=== PATIENT | female | born 1960 | race Caucasian/White ===

== ENCOUNTER 2016-12-06 10:36 | Emergency (ER) | payer OTHER, MEDICARE ==
[~2016-12-06] VITALS: Ht 165.1 cm; Wt 152.0 kg
[~2016-12-06 10:36] MED LIST: ABILIFY 10 MG10 MG PO; ALBUTEROL0.09 MG/A1 INH; ALPRAZOLAM2 M2 PO; AMLODIPINE BESY10 M1 PO; ATORVASTATIN CA10 MG PO; CARVEDILOL6.25 M1 PO; CLONIDINE1 EACH TOP; CLOTRIMAZOLE15 GM TOP; DIPROLENE AF 0.15 GM TOP; FLUOXETINE HCL20 M2 PO; GLIPIZIDE5 MG PO; IMODIUM A-D2 M1 PO; KETOCONAZOLE15 GM TOP; KLONOPIN 1MG TAB1 MG PO; LEVEMIR FL100 UNIT/1 SC; LEVEMIR FL300 UNITS/; LEVSIN-SL0.125 MG SL; LISINOPRIL10 M1 PO; LISINOPRIL10 MG PO; LOMOTIL 2.5-0.1 EACH PO; MUPIROCIN22 GM TOP; NOVOLOG 10300 UNITS/ SC; NOVOLOG FL100 UNIT/1 SC; OMEPRAZOLE20 M2 PO; OXYBUTYNIN CHLOR5 M2 PO; ROZEREM8 M1 PO; TOPIRAMATE50 MG PO; TRIAMCINOLONE A15 G1 TOP; UCERIS9 M1 PO; VICODIN 500 MG-1 TAB PO; ZOFRAN ODT4 M1 SL
[2016-12-06 10:43] VITALS: BP 203/101
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
== END 2016-12-06 15:41 ==
LOC: ERH 10:36
DX: F41.9 Anxiety disorder, unspecified (principal)

== ENCOUNTER 2016-12-14 22:55 | Emergency (ER) | payer OTHER, MEDICARE ==
[~2016-12-14] VITALS: Ht 165.1 cm; Wt 156.5 kg
[2016-12-15 00:50] LABS: ABSOLUTE BASOPHIL COUNT 0.1 /CUMM (0.0-0.2); ABSOLUTE EOSINOPHIL COUNT 0.6 /CUMM (0.0-0.7); ABSOLUTE GRANULOCYTE CT 5.2 /CUMM (1.4-6.5); ABSOLUTE LYMPH COUNT 3.6 /CUMM (1.2-3.4); ABSOLUTE MONOCYTE COUNT 0.6 /CUMM (0.10-0.60); BASOPHIL % 0.7 % (0.0-2.0); EOSINOPHIL % 5.6 % (0-5); GRANULOCYTE % 51.4 % (42.2-75.2); HEMATOCRIT 38.7 % (37-47); MEAN CORPUSCULAR HGB 28.3 PG (27.0-31.0); MEAN CORPUSCULAR HGB CONC 33.4 G/DL (33.0-37.0); MEAN CORPUSCULAR VOLUME 84.7 FL (81.0-99.0); MEAN PLATELET VOLUME 8.9 FL (7.4-10.4); PLATELET COUNT 262 /CUMM (130-400); RBC DISTRIBUTION WIDTH 16.6 % (11.5-14.5); RED BLOOD CELL CT 4.56 /CUMM (4.20-5.40)
[2016-12-15 01:19] LABS: WHITE BLOOD CELL COUNT 10.1 /CUMM (4.8-10.8)
--- NOTE | 2016-12-15 02:46 | ED GI/GU/ABDOMINAL COMPLAINT ---
History of Present Illness General Chief Complaint: Low Back Pain/Injury Stated Complaint: BIBA LOW BACK/KIDNEY PAIN, HERE FEW DAYS AGO SAME Source: patient, old records, EMS Exam Limitations: no limitations Vital Signs & Intake/Output Vital Signs & Intake/Output Vital Signs Date Time Temp Pulse Resp B/P Pulse O2 O2 Flow FiO2 Ox Delivery Rate 12/15 518 97.4 68 18 134/75 96 Room Air 12/15 0135 98.0 70 18 148/76 97 Room Air 12/14 2309 Room Air 12/14 2304 97.3 60 18 162/82 96 Room Air ED Intake and Output 12/15 0000 12/14 1200 Intake Total 0 Output Total Balance 0 Intake, Oral 0 Patient 345 lb Weight Allergies Coded Allergies: NSAIDS (Non-Steroidal Anti-Inflamma (CROHNS/DIVERTICULOSIS 12/06/16) aspirin (CROHNS/DIVERTICULOSIS 12/06/16) furosemide (From LASIX) ("ENZYMES WENT ABIMBOLA HIGH" 12/06/16) Reconcile Medications Alprazolam 2 MG TABLET 1 TAB PO TID ANXIETY (Reported) Amlodipine Besylate 10 MG TABLET 1 TAB PO DAILY BP (Reported) Betamethasone Diprop (Diprolene AF 0.05% Cream) 0.05 % CREAM..G. 1 GARY TOP AD SKIN (Reported) apply to affected area(s) Budesonide (Uceris) 9 MG TABDR...ER 1 TAB PO DAILY CROHNS (Reported) Carvedilol 6.25 MG TABLET 1 TAB PO BID BP (Reported) Cephalexin (Keflex) 500 MG CAPSULE 1 CAP PO TID uti Clonidine 0.1 MG/24 HOUR PATCH.TDWK 1 PATCH TOP DAILY BP (Reported) Clotrimazole 1 % CREAM..G. 1 GARY TOP AD SKIN (Reported) apply to affected area(s) Diphenoxylate HCl/Atropine (Lomotil 2.5-0.025 MG Tablet) 2.5 MG-0.025 MG TABLET 2 TAB PO PRN DIARRHEA (Reported) Fluoxetine HCl 20 MG CAPSULE 3 CAP PO QAM MENTAL HEALTH (Reported) Hyoscyamine Sulfate (Levsin-Sl) 0.125 MG TAB.SUBL 1-2 TAB SL Q4P PRN abdominal cramps Insulin Aspart, Recombinant (Novolog Flexpen) 100 UNIT/ML INSULN.PEN DM ( Reported) Insulin Detemir (Levemir Flextouch) 100 UNIT/ML (3 ML) INSULN.PEN 60 UNITS SC BID DM (Reported) Ketoconazole 2 % CREAM..G. 1 GARY TOP AD SKIN (Reported) apply to affected area(s) Lisinopril 10 MG TABLET 1 TAB PO DAILY BP (Reported) Loperamide HCl (Imodium A-D) 2 MG TABLET 0 PO SEE ADMIN CRITERIA PRN diarrhea 1 tab after each loose stool up to 7 per day Mupirocin 2 % OINT...G. 1 GARY TOP AD SKIN (Reported) apply to affected area(s) Omeprazole (Unknown Strength) CAPSULE.DR (Unknown Dose) PO UNKNOWN (Reported) Ondansetron (Zofran Odt) 4 MG TAB.RAPDIS 1 TAB SL TID PRN nausea Oxybutynin Chloride 5 MG TABLET 1 TAB PO TID BLADDER (Reported) Oxycodone HCl/Acetaminophen (Percocet 5-325 MG Tablet) 5 MG-325 MG TABLET 1 TAB PO Q6P PRN severe pain Triamcinolone Acetonide 0.1 % CREAM..G. 1 GARY TOP AD SKIN (Reported) Triage Note: PT BIBA FROM [place] C/O L SIDE BACK/FLANK PAIN 08/19. PT STATES "MAYBE IT'S A KIDNEY STONE." PT DENIES ANY DIFFICULTY URINATING. Triage Nurses Notes Reviewed? yes LMP (ages 10-50): post menopausal ? n Is pt currently ? No Onset: Just prior to arrival Duration: day(s):, constant, continues in ED, getting worse Timing: recent history Quality/Severity: aching Location: left flank Radiation: no radiation Activities at Onset: none Prior Abdominal Problems: similar symptoms Past Sexual History: Unobtainable at this time No Modifying Factors: none Associated Symptoms: abdominal pain HPI: 1 day prior to admission patient complains of sharp left flank pain nonradiating similar to previous pain of kidney stone moderate to severe intensity. She denies fever chills nausea vomiting diarrhea chest pain cough shortness of breath headache dysuria rash bleeding. Past History Travel History Traveled to [place] past 21 day No Medical History Any Pertinent Medical History? 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 FH: colon cancer FATHER, ; Cause: Multiple myeloma. Hx Contributory? No Review of Systems Review of Systems Constitutional: Reports: no symptoms. EENTM: Reports: no symptoms. Respiratory: Reports: no symptoms. Cardiovascular: Reports: no symptoms. GI: Reports: no symptoms. Genitourinary: Reports: see HPI, pain. Musculoskeletal: Reports: no symptoms. Skin: Reports: no symptoms. Neurological/Psychological: Reports: no symptoms. Hematologic/Endocrine: Reports: no symptoms. Immunologic/Allergic: Reports: no symptoms. All Other Systems: Reviewed and Negative Physical Exam Physical Exam General Appearance: well developed/nourished, alert, awake, anxious, moderate distress, obese Head: atraumatic, normal appearance Eyes: Bilateral: normal appearance, PERRL, EOMI, normal inspection. Ears, Nose, Throat, Mouth: hearing grossly normal, moist mucous membrane Neck: normal inspection, supple, full range of motion, normal alignment Respiratory: normal breath sounds, chest non-tender, no respiratory distress, quiet respiration, lungs clear Cardiovascular: regular rate/rhythm, normal peripheral pulses, norml femoral pulses equa Peripheral Pulses: 4+ carotid (R), 4+ carotid (L) Gastrointestinal: normal bowel sounds, soft, non-tender, no organomegaly Back: normal inspection, normal range of motion Extremities: normal range of motion, no ligament instability Neurologic/Psych: no motor/sensory deficits, awake, alert, oriented x 3, normal gait, normal mood/affect Skin: intact, normal color Core Measures ACS in differential dx? No Severe Sepsis Present: No Septic Shock Present: No Progress Differential Diagnosis: diverticulitis, kidney stone, UTI/pyelo Plan of Care: Orders Procedure Date/time Status URINALYSIS 12/14 2334 Complete COMPREHENSIVE METABOLIC PANEL 12/14 2334 Complete CBC WITHOUT DIFFERENTIAL 12/14 2334 Complete Current Medications Sig/Jack Start time Last Medication Dose Stop Time Status Admin Ceftriaxone Sodium 1,000 MG ONCE ONE 12/15 614 UNVr (Rocephin) 12/15 0616 Laboratory Tests 12/15/16 0516: Urinalysis LIGHT H, Urine Color YEL, Urine Clarity CLDY H, Urine pH 6.0, Ur Specific [place] 1.025, Urine Protein TRACE H, Urine Ketones NEG, Urine Nitrite NEG, Urine Bilirubin NEG, Urine Urobilinogen 0.2, Ur Leukocyte Esterase LARGE H , Ur Microscopic SEDIMENT EXAMINED, Urine RBC 3-5, Urine WBC > 75 H, Ur Epithelial Cells FEW, Urine Hemoglobin TRACE-INTACT, Urine Glucose NEG 12/15/16 0031: CBC w Diff NO MAN DIFF REQ, RBC 4.56, MCV 84.7, MCH 28.3, RDW 16.6 H, MPV 8.9, Gran % 51.4, Lymphocytes % 35.9, Monocytes % 6.4, Eosinophils % 5.6 H, Basophils % 0.7, Absolute Granulocytes 5.2, Absolute Lymphocytes 3.6 H, Absolute Monocytes 0.6, Absolute Eosinophils 0.6, Absolute Basophils 0.1, PUBS MCHC 33.4 12/14/16 2352: Anion Gap 7, Estimated GFR > 60, BUN/Creatinine Ratio 23.8, Glucose 164 H, Calcium 9.1, Total Bilirubin 0.7, AST 18, ALT 31, Alkaline Phosphatase 107, Total Protein 6.9, Albumin 3.7, Globulin 3.2, Albumin/Globulin Ratio 1.2 Initial ED EKG: none Comments: Unable to fit into CT scan Departure Departure Time of Disposition: 605 Disposition: ACUTE REHAB FACILITY Condition: Stable Clinical Impression Primary Impression: Renal colic on left side Secondary Impressions: Urinary tract infection Qualifiers: Urinary tract infection type: site unspecified Hematuria presence: without hematuria Qualified Code: N39.0 - Urinary tract infection, site not specified Referrals: CEM ALVES,SCOT FARAH MD,TERRA (PCP/Family) Departure Forms: Customer Survey General Discharge Information Prescriptions: Current Visit Scripts Cephalexin (Keflex) 1 CAP PO TID #21 CAP Oxycodone HCl/Acetaminophen (Percocet 5-325 MG Tablet) 1 TAB PO Q6P PRN severe pain #15 TAB
[2016-12-15] MEDS ORDERED: KEFLEX500 M1 PO (06:09)
[2016-12-15] MEDS ORDERED: PERCOCET 5-3251 EACH PO (06:09)
[2016-12-15 06:27] VITALS: BP 144/83
[2016-12-15] MEDS ORDERED: CEPHALEXIN250 MG/51 (20:07)
[2016-12-15] MEDS ORDERED: TRAMADOL HCL50 M1 (20:08)
[2016-12-15] MEDS ORDERED: VENTOLIN HFA18 GM (20:08)
== END 2016-12-15 07:17 ==
LOC: ERH 22:55
PROVIDERS: Emergency Medicine
DX: N23 Unspecified renal colic (principal); N39.0 Urinary tract infection, site not specified
CPT/HCPCS: 81001; 96374; 96375; J0696

== ENCOUNTER 2016-12-15 19:59 | Emergency (ER) | payer OTHER, MEDICARE ==
[~2016-12-15] VITALS: Ht 165.1 cm; Wt 156.5 kg
[~2016-12-15 19:59] MED LIST changes: +KEFLEX500 M1 PO; +PERCOCET 5-3251 EACH PO
[2016-12-15] MEDS ORDERED: CEPHALEXIN250 MG/51 (20:07)
[2016-12-15] MEDS ORDERED: TRAMADOL HCL50 M1 (20:08)
[2016-12-15] MEDS ORDERED: VENTOLIN HFA18 GM (20:08)
--- NOTE | 2016-12-15 20:08 | ED PSYCHIATRIC COMPLAINT ---
See Addendum History of Present Illness General Chief Complaint: Psychiatric Related Complaint Stated Complaint: BIBA +SI Source: patient, old records, EMS, [facility] Exam Limitations: no limitations Vital Signs & Intake/Output Vital Signs & Intake/Output Vital Signs Date Time Temp Pulse Resp B/P Pulse O2 O2 Flow FiO2 Ox Delivery Rate 12/16 0737 97.0 63 18 163/78 95 Room Air 12/16 0528 96.8 63 18 162/84 97 Room Air 12/16 0257 96.0 59 20 179/86 97 Room Air 12/16 0035 97.4 56 18 158/72 98 Room Air 12/158 97.4 48 18 167/70 97 Room Air 12/15 2058 Room Air 12/15 2010 97.2 55 20 153/79 98 Room Air ED Intake and Output 12/16 0000 12/15 1200 Intake Total 0 Output Total Balance 0 Intake, Oral 0 Patient 345 lb Weight Allergies Coded Allergies: NSAIDS (Non-Steroidal Anti-Inflamma (CROHNS/DIVERTICULOSIS 12/06/16) aspirin (CROHNS/DIVERTICULOSIS 12/06/16) furosemide (From LASIX) ("ENZYMES WENT ABIMBOLA HIGH" 12/06/16) Reconcile Medications Albuterol Sulfate (Ventolin Hfa) (Unknown Strength) HFA.AER.AD (Unknown Dose) UNKNOWN (Reported) Alprazolam 2 MG TABLET 1 TAB PO TID ANXIETY (Reported) Amlodipine Besylate 10 MG TABLET 1 TAB PO DAILY BP (Reported) Betamethasone Diprop (Diprolene AF 0.05% Cream) 0.05 % CREAM..G. 1 GARY TOP AD SKIN (Reported) apply to affected area(s) Budesonide (Uceris) 9 MG TABDR...ER 1 TAB PO DAILY CROHNS (Reported) Carvedilol 6.25 MG TABLET 1 TAB PO BID BP (Reported) Cephalexin 250 MG/5 ML SUSP.RECON (Unknown Dose) UNKNOWN (Reported) Cephalexin (Keflex) 500 MG CAPSULE 1 CAP PO TID uti Clonidine 0.1 MG/24 HOUR PATCH.TDWK 1 PATCH TOP DAILY BP (Reported) Clotrimazole 1 % CREAM..G. 1 GARY TOP AD SKIN (Reported) apply to affected area(s) Diphenoxylate HCl/Atropine (Lomotil 2.5-0.025 MG Tablet) 2.5 MG-0.025 MG TABLET 2 TAB PO PRN DIARRHEA (Reported) Fluoxetine HCl 20 MG CAPSULE 3 CAP PO QAM MENTAL HEALTH (Reported) Hyoscyamine Sulfate (Levsin-Sl) 0.125 MG TAB.SUBL 1-2 TAB SL Q4P PRN abdominal cramps Insulin Aspart, Recombinant (Novolog Flexpen) 100 UNIT/ML INSULN.PEN DM ( Reported) Insulin Detemir (Levemir Flextouch) 100 UNIT/ML (3 ML) INSULN.PEN 60 UNITS SC BID DM (Reported) Ketoconazole 2 % CREAM..G. 1 GARY TOP AD SKIN (Reported) apply to affected area(s) Lisinopril 10 MG TABLET 1 TAB PO DAILY BP (Reported) Mupirocin 2 % OINT...G. 1 GARY TOP AD SKIN (Reported) apply to affected area(s) Omeprazole (Unknown Strength) CAPSULE.DR (Unknown Dose) PO UNKNOWN (Reported) Oxybutynin Chloride 5 MG TABLET 1 TAB PO TID BLADDER (Reported) Tramadol HCl (Unknown Strength) TABLET (Unknown Dose) UNKNOWN (Reported) Triamcinolone Acetonide 0.1 % CREAM..G. 1 GARY TOP AD SKIN (Reported) Triage Nurses Notes Reviewed? yes Onset: Gradual Duration: week(s):, waxing and waning Timing: recent history Severity: mild, moderate Associated Symptoms: anxiety, suicidal ideation HPI: 56-year-old woman with history of chronic pain and depression from a [place] [facility], presents with suicidal statements. The medics state that she became agitated and said that she wanted to kill herself with a knife. She also made threatening statements to the staff. The medics were called the police also arrived. The police papered her. She states , "of course I said those things, but it's because they didn't give me my pain medication." She denies suicidality and homicidality. She notes that she has chronic left-sided back and side pain which she has had for several weeks. She notes also that she was seen recently in the emergency department and started on Keflex for urinary tract infection, she states that she missed her recent dose. (SHANE ALVES,KELVIN Klein) Past History Travel History Traveled to [place] past 21 day No Medical History Any Pertinent Medical History? 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 FH: colon cancer FATHER, ; Cause: Multiple myeloma. Hx Contributory? No (SHANE ALVES,KELVIN Klein) Review of Systems Review of Systems Constitutional: Reports: no symptoms. EENTM: Reports: no symptoms. Respiratory: Reports: no symptoms. Cardiovascular: Reports: no symptoms. GI: Reports: no symptoms. Genitourinary: Reports: no symptoms. Musculoskeletal: Reports: no symptoms. Skin: Reports: no symptoms. Neurological/Psychological: Reports: no symptoms. Hematologic/Endocrine: Reports: no symptoms. Immunologic/Allergic: Reports: no symptoms. All Other Systems: Reviewed and Negative (SHANE ALVES,KELVIN Klein) Physical Exam Physical Exam General Appearance: well developed/nourished, mild distress Head: atraumatic Eyes: Bilateral: normal appearance. Ears, Nose, Throat: normal pharynx, normal ENT inspection, hearing grossly normal Neck: normal inspection, supple Respiratory: normal breath sounds Cardiovascular: regular rate/rhythm Gastrointestinal: soft, non-tender Extremities: normal range of motion Neurological/Psychiatric: no motor/sensory deficits, awake, agitated, normal mood/affect Appearance/Memory/Insight: disheveled Behavoir/Eye Contact/Speech: cooperative Thoughts/Hallucinations: anxiety Skin: intact, normal color, warm/dry Comments: Back exam notable for left sided thoracic musculoskeletal tenderness to palpation SAD PERSONS SAD PERSONS Response Value Age <19 or >45 years? yes 1 Depression/Hopelessness? yes 2 Social Support? has support 0 Total 3 SAD PERSONS Done? yes (SHANE ALVES,KELVIN Klein) Progress Differential Diagnosis: depression, anxiety, chronic pain versus other. Plan of Care: Orders Procedure Date/time Status Regular Diet 12/16 B Active CASE MANAGEMENT CONSULT 12/16 0501 Active URINALYSIS 12/15 2016 Complete Continuous Observation Monitor 02/05 2016 Active ED CRISIS PSYCH CONSULT 12/15 2015 Active URINE DRUG SCREEN FOR ER ONLY 12/15 2005 Complete ETHANOL 12/15 2005 Complete COMPREHENSIVE METABOLIC PANEL 12/15 2005 Complete CBC WITHOUT DIFFERENTIAL 12/15 2005 Complete Laboratory Tests 12/15/162047: Urine Opiates Screen 885.00, Methadone Screen < 40, Barbiturate Screen < 60, Ur Phencyclidine Scrn < 6.00, Amphetamines Screen < 100, U Benzodiazepines Scrn > 800 H, Urine Cocaine Screen < 50, Urine Cannabis Screen < 5.00, Urine Color YEL , Urine Clarity HAZY H, Urine pH 6.0, Ur Specific [place] 1.020, Urine Protein NEG, Urine Ketones NEG, Urine Nitrite NEG, Urine Bilirubin NEG, Urine Urobilinogen 0.2, Ur Leukocyte Esterase LARGE H, Ur Microscopic SEDIMENT EXAMINED, Urine RBC 1-3, Urine WBC 15-25 H, Ur Epithelial Cells FEW, Urine Hemoglobin TRACE-INTACT, Urine Glucose NEG 12/15/162023: Anion Gap 7, Estimated GFR 51 L, BUN/Creatinine Ratio 17.3, Glucose 149 H, Calcium 9.1, Total Bilirubin 0.5, AST 19, ALT 38, Alkaline Phosphatase 107, Total Protein 6.5, Albumin 3.5, Globulin 3.0, Albumin/Globulin Ratio 1.2, CBC w Diff NO MAN DIFF REQ, RBC 4.69, MCV 83.9, MCH 28.0, RDW 16.7 H, MPV 8.7, Gran % 65.3, Lymphocytes % 23.2, Monocytes % 5.4, Eosinophils % 5.5 H, Basophils % 0.6 , Absolute Granulocytes 6.1, Absolute Lymphocytes 2.2, Absolute Monocytes 0.5, Absolute Eosinophils 0.5, Absolute Basophils 0.1, PUBS MCHC 33.4, Serum Alcohol < 10.0 Hand-Off Endorsed To: BARBI ORO DO Endorsed Time: 0700 Pending: consult (SHANE ALVES,KELVIN Klein) Departure Departure Disposition: STILL A PATIENT Condition: Stable Clinical Impression Primary Impression: Depression Secondary Impressions: Chronic pain, UTI (urinary tract infection) Referrals: TERRA FARAH MD (PCP/Family) Departure Forms: Customer Survey General Discharge Information (SHANE ALVES,KELVIN Klein) Departure Comments 12/16/16 8:30 AM The patient was signed out to me by Dr. Olmstead. She is a 56-year-old female with morbid obesity, chronic back pain, Crohn's disease, and diabetes. She is currently a resident of [place]. She reports that she feels she was mistreated, that they weren't adequately treating her pain, and she expressed suicidal ideation and is refusing to go back. No complaints in the emergency department at this time. Case management and crisis have been requested to evaluate the patient's situation. (BARBI ORO DO)
[2016-12-15 20:31] LABS: ABSOLUTE BASOPHIL COUNT 0.1 /CUMM (0.0-0.2); ABSOLUTE EOSINOPHIL COUNT 0.5 /CUMM (0.0-0.7); ABSOLUTE GRANULOCYTE CT 6.1 /CUMM (1.4-6.5); ABSOLUTE LYMPH COUNT 2.2 /CUMM (1.2-3.4); ABSOLUTE MONOCYTE COUNT 0.5 /CUMM (0.10-0.60); BASOPHIL % 0.6 % (0.0-2.0); EOSINOPHIL % 5.5 % (0-5); GRANULOCYTE % 65.3 % (42.2-75.2); HEMATOCRIT 39.3 % (37-47); MEAN CORPUSCULAR HGB CONC 33.4 G/DL (33.0-37.0); MEAN CORPUSCULAR VOLUME 83.9 FL (81.0-99.0); MEAN PLATELET VOLUME 8.7 FL (7.4-10.4); PLATELET COUNT 254 /CUMM (130-400); RBC DISTRIBUTION WIDTH 16.7 % (11.5-14.5); RED BLOOD CELL CT 4.69 /CUMM (4.20-5.40); WHITE BLOOD CELL COUNT 9.3 /CUMM (4.8-10.8)
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
[2016-12-16 15:00] VITALS: BP 152/67
== END 2016-12-16 15:56 | disposition left against medical advice (07) ==
LOC: ERH 19:59
PROVIDERS: Pediatrics
DX: F32.9 Major depressive disorder, single episode, unspecified (principal); G89.29 Other chronic pain; N39.0 Urinary tract infection, site not specified; I10 Essential (primary) hypertension
CPT/HCPCS: 80307; 81001; 96374; 96375; 97110-GP; 97162-GP; 97530-GP; G0463; G0480; G8978-GP; G8979-GP; J0696

== ENCOUNTER 2017-04-12 02:25 | Emergency (ER) | payer OTHER, MEDICARE ==
[~2017-04-12] VITALS: Ht 162.6 cm; Wt 181.4 kg
[~2017-04-12 02:25] MED LIST changes: +CEPHALEXIN250 MG/51; +TRAMADOL HCL50 M1; +VENTOLIN HFA18 GM
[2017-04-12 02:30] VITALS: BP 194/104
--- NOTE | 2017-04-12 02:35 | ED GENERAL ADULT ---
History of Present Illness General Chief Complaint: General Adult Stated Complaint: "PER PT NEED TO BE CLEANED" Source: patient, EMS Exam Limitations: no limitations Vital Signs & Intake/Output Vital Signs & Intake/Output Vital Signs Date Time Temp Pulse Resp B/P B/P Pulse O2 O2 Flow FiO2 Mean Ox Delivery Rate 04/12 0230 95.7 72 18 194/104 97 Room Air Allergies Coded Allergies: NSAIDS (Non-Steroidal Anti-Inflamma (CROHNS/DIVERTICULOSIS 12/06/16) aspirin (CROHNS/DIVERTICULOSIS 12/06/16) furosemide (From LASIX) ("ENZYMES WENT ABIMBOLA HIGH" 12/06/16) Reconcile Medications Albuterol Sulfate (Ventolin Hfa) (Unknown Strength) HFA.AER.AD (Unknown Dose) UNKNOWN (Reported) Alprazolam 2 MG TABLET 1 TAB PO TID ANXIETY (Reported) Amlodipine Besylate 10 MG TABLET 1 TAB PO DAILY BP (Reported) Betamethasone Diprop (Diprolene AF 0.05% Cream) 0.05 % CREAM..G. 1 GARY TOP AD SKIN (Reported) apply to affected area(s) Budesonide (Uceris) 9 MG TABDR...ER 1 TAB PO DAILY CROHNS (Reported) Carvedilol 6.25 MG TABLET 1 TAB PO BID BP (Reported) Cephalexin 250 MG/5 ML SUSP.RECON (Unknown Dose) UNKNOWN (Reported) Cephalexin (Keflex) 500 MG CAPSULE 1 CAP PO TID uti Clonidine 0.1 MG/24 HOUR PATCH.TDWK 1 PATCH TOP DAILY BP (Reported) Clotrimazole 1 % CREAM..G. 1 GARY TOP AD SKIN (Reported) apply to affected area(s) Diphenoxylate HCl/Atropine (Lomotil 2.5-0.025 MG Tablet) 2.5 MG-0.025 MG TABLET 2 TAB PO PRN DIARRHEA (Reported) Fluoxetine HCl 20 MG CAPSULE 3 CAP PO QAM MENTAL HEALTH (Reported) Hyoscyamine Sulfate (Levsin-Sl) 0.125 MG TAB.SUBL 1-2 TAB SL Q4P PRN abdominal cramps Insulin Aspart, Recombinant (Novolog Flexpen) 100 UNIT/ML INSULN.PEN DM ( Reported) Insulin Detemir (Levemir Flextouch) 100 UNIT/ML (3 ML) INSULN.PEN 60 UNITS SC BID DM (Reported) Ketoconazole 2 % CREAM..G. 1 GARY TOP AD SKIN (Reported) apply to affected area(s) Lisinopril 10 MG TABLET 1 TAB PO DAILY BP (Reported) Mupirocin 2 % OINT...G. 1 GARY TOP AD SKIN (Reported) apply to affected area(s) Omeprazole (Unknown Strength) CAPSULE.DR (Unknown Dose) PO UNKNOWN (Reported) Oxybutynin Chloride 5 MG TABLET 1 TAB PO TID BLADDER (Reported) Tramadol HCl (Unknown Strength) TABLET (Unknown Dose) UNKNOWN (Reported) Triamcinolone Acetonide 0.1 % CREAM..G. 1 GARY TOP AD SKIN (Reported) Triage Nurses Notes Reviewed? yes Onset: Gradual Duration: hour(s): Timing: single episode today Injury Environment: home Severity: mild Modifying Factors: Improves With: rest. Associated Symptoms: "I defecated and I can't clean myself up." HPI: 57 yo woman bed bound, with morbid obesity, crohn's disease, presents after defecation. She states that, "I defecated and my aides weren't around to help me clean up. I called 911 so that they could help me." She states, "All I need is for someone to clean me up and then I can go back home." She declines blood work and imaging. She states that she is well, at her baseline, and would like to go home after being cleaned. The medics note that they are often called to the home. Past History Travel History Traveled to [place] past 21 day No Medical History Any Pertinent Medical History? 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 FH: colon cancer FATHER, ; Cause: Multiple myeloma. Hx Contributory? No Review of Systems Review of Systems Constitutional: Reports: no symptoms. EENTM: Reports: no symptoms. Respiratory: Reports: no symptoms. Cardiovascular: Reports: no symptoms. GI: Reports: no symptoms. Genitourinary: Reports: no symptoms. Musculoskeletal: Reports: no symptoms. Skin: Reports: no symptoms. Neurological/Psychological: Reports: no symptoms. Hematologic/Endocrine: Reports: no symptoms. Immunologic/Allergic: Reports: no symptoms. All Other Systems: Reviewed and Negative Physical Exam Physical Exam General Appearance: well developed/nourished, no apparent distress Head: atraumatic, normal appearance Eyes: Bilateral: normal appearance. Ears, Nose, Throat: normal pharynx Neck: normal inspection, supple, full range of motion Respiratory: normal breath sounds, chest non-tender, no respiratory distress, quiet respiration, lungs clear Cardiovascular: regular rate/rhythm Gastrointestinal: soft, morbidly obese Back: normal inspection Extremities: normal inspection Neurologic/Psych: no motor/sensory deficits, awake, alert, oriented x 3 Skin: intact, normal color, warm/dry Core Measures ACS in differential dx? No CVA/TIA Diagnosis: No Severe Sepsis Present: No Septic Shock Present: No Progress Differential Diagnoses I considered the following diagnoses in my evaluation of the patient: defecation vs morbid obesity vs other. Plan of Care: pt cleaned up by nursing staff. Pt insists on going home. Initial ED EKG: none Departure Departure Disposition: HOME OR SELF CARE Condition: Stable Clinical Impression Primary Impression: Frequent defecation Referrals: TERRA FARAH MD (PCP/Family) Departure Forms: Customer Survey General Discharge Information Comments Discussed at length with patient. She does not wish to be evaluated by case management. She states that she has aides that help her. She insists on going home. Pt cleaned from her bowel movement. Pt transferred back to home via ambulance. Critical Care Note Critical Care Note Critical Care Time: non-applicable
== END 2017-04-12 03:15 ==
LOC: ERH 02:25
DX: Z00.8 Encounter for other general examination (principal)
CPT/HCPCS: 99282

== ENCOUNTER 2018-05-17 18:59 | Inpatient (IN) | payer OTHER, MEDICARE ==
[~2018-05-17] VITALS: Ht 162.6 cm; Wt 132.9 kg
[~2018-05-17 18:59] MED LIST changes: +CIPRO500 M1 PO; +COZAAR50 M1 PO; +DESITIN57 GM TOP; +FAMOTIDINE20 M1 PO; +GLIPIZIDE5 M2 PO; +HYDRALAZINE HC100 M1 PO; +HYDROCODON-ACE1 EAC4 PO; +LANTUS SOL100 UNIT/1 SC; -LISINOPRIL10 M1 PO; +LISINOPRIL40 M1 PO; +NYAMYC15 GM TOP; +OXYCODONE HCL5 M1 PO; +TOPAMAX50 M1 PO; +VENLAFAXINE HC100 M1 PO; +VITAMIN D250000 UNIT PO
--- NOTE | 2018-05-17 19:26 | ED GI/GU/ABDOMINAL COMPLAINT ---
History of Present Illness General Chief Complaint: Nausea, Vomiting, Diarrhea Stated Complaint: BIBA +N X5 DAYS Source: patient Exam Limitations: no limitations Vital Signs & Intake/Output Vital Signs & Intake/Output Vital Signs Date Time Temp Pulse Resp B/P B/P Pulse O2 O2 Flow FiO2 Mean Ox Delivery Rate 05/18 0248 99.3 96 20 130/67 95 Room Air 05/18 0213 99.8 80 18 133/80 98 Room Air 05/18 0006 100.0 98 18 129/71 97 Room Air 05/17 2212 99.8 98 18 138/75 97 Room Air 05/17 1910 99.9 101 20 136/60 97 Room Air ED Intake and Output 05/18 0000 05/17 1200 Intake Total 1000 Output Total 100 Balance 900 Intake, IV 1000 Output, Urine 100 Allergies Coded Allergies: NSAIDS (Non-Steroidal Anti-Inflamma (CROHNS/DIVERTICULOSIS 04/01/18) aspirin (CROHNS/DIVERTICULOSIS 04/01/18) furosemide (From LASIX) ("ENZYMES WENT ABIMBOLA HIGH" 04/01/18) Reconcile Medications Alprazolam 2 MG TABLET 1 TAB PO TID ANXIETY (Reported) Amlodipine Besylate (Unknown Strength) TABLET (Unknown Dose) PO DAILY BP ( Reported) Carvedilol 6.25 MG TABLET 1 TAB PO BID BP (Reported) Ciprofloxacin HCl (Cipro) 500 MG TABLET 1 TAB PO BID uti Clotrimazole 1 % CREAM..G. 1 GARY TOP AD SKIN (Reported) apply to affected area(s) Fluoxetine HCl 20 MG CAPSULE 3 CAP PO QAM MENTAL HEALTH (Reported) Glipizide 5 MG TABLET 1 TAB PO BID DIABETES (Reported) Hydralazine HCl 100 MG TABLET 1 TAB PO BID HEART (Reported) Hydrocodone/Acetaminophen (Hydrocodon-Acetaminophn 10-300) 10 MG-300 MG TABLET 1 TAB PO Q6 PAIN (Reported) Insulin Aspart, Recombinant (Novolog Flexpen) 100 UNIT/ML INSULN.PEN DM ( Reported) Insulin Glargine,Hum.rec.anlog (Lantus Solostar) (Unknown Strength) INSULN.PEN (Unknown Dose) SC QAM DM (Reported) Ketoconazole 2 % CREAM..G. 1 GARY TOP AD SKIN (Reported) apply to affected area(s) Lisinopril (Unknown Strength) TABLET (Unknown Dose) PO DAILY BP (Reported) Losartan Potassium (Cozaar) 50 MG TABLET 1 TAB PO DAILY HYPERTENSION Nystatin (Nyamyc) 100,000 UNIT/GRAM POWDER 1 GARY TOP BID RASH (Reported) Omeprazole (Unknown Strength) CAPSULE.DR (Unknown Dose) PO DAILY SUPPLEMENT ( Reported) Ondansetron (Zofran Odt) 4 MG TAB.RAPDIS 1 TAB SL TID PRN nausea Oxybutynin Chloride (Unknown Strength) TABLET (Unknown Dose) PO BID BLADDER ( Reported) Oxycodone HCl 5 MG TABLET 1 TAB PO 4XDP PRN pain Topiramate (Topamax) (Unknown Strength) TABLET (Unknown Dose) PO BID UNKNOWN (Reported) Venlafaxine HCl 100 MG TABLET 1 TAB PO BID MENTAL HEALTH (Reported) Zinc Oxide (Desitin) 13 % CREAM..G. 1 GARY TOP TID SKIN (Reported) Triage Note: PT BIBA FROM HOME FOR N/V X3DAYS. PT STATES SHE TOOK HER PRESCRIBED ZOFRAN W/ (+) RELIEF. PT STATES SHE HAS HAD KIDNEY STONES FOR THE PAST FEW MONTHS Triage Nurses Notes Reviewed? yes ? n Is pt currently ? No Onset: Gradual Duration: day(s):, waxing and waning Timing: recent history Quality/Severity: cramping Location: right lower quadrant Radiation: RUQ Activities at Onset: none Modifying Factors: Worsens With: urinating. Associated Symptoms: abdominal pain, nausea/vomiting HPI: 58 YO WOMAN h/o crohn's and kidney stones, presents with 3 days of right lower quadrant , and dysuria, vomiting, nausea, without diarrhea. No fever, chills, chest pain, dyspnea. Past History Travel History Traveled to [place] past 21 day No Medical History Any Pertinent Medical History? 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 FH: colon cancer FATHER, ; Cause: Multiple myeloma. Hx Contributory? No Review of Systems Review of Systems Constitutional: Reports: no symptoms. EENTM: Reports: no symptoms. Respiratory: Reports: no symptoms. Cardiovascular: Reports: no symptoms. GI: Reports: no symptoms. Genitourinary: Reports: no symptoms. Musculoskeletal: Reports: no symptoms. Skin: Reports: no symptoms. Neurological/Psychological: Reports: no symptoms. Hematologic/Endocrine: Reports: no symptoms. Immunologic/Allergic: Reports: no symptoms. All Other Systems: Reviewed and Negative Physical Exam Physical Exam General Appearance: well developed/nourished Gastrointestinal: normal bowel sounds, soft, rlq tenderness to palpation Comments: Review of Systems - except as otherwise noted in HPI Physical Exam Physical Exam General Appearance: well developed/nourished, no apparent distress Head: atraumatic, normal appearance Eyes: Bilateral: normal appearance. Ears, Nose, Throat: normal pharynx, normal ENT inspection except for dry mucosa Neck: normal inspection, supple, full range of motion Respiratory: normal breath sounds, chest non-tender, no respiratory distress, quiet respiration, lungs clear Cardiovascular: regular rate/rhythm Gastrointestinal: normal bowel sounds, soft, non-tender, no organomegaly... obesity Back: normal inspection, normal range of motion, right sided cva tenderness Extremities: normal inspection, normal capillary refill, normal range of motion, no edema Neurologic/Psych: no motor/sensory deficits, awake, alert, oriented x 3 Skin: intact, normal color, warm/dry Core Measures ACS in differential dx? No Sepsis Present: Yes Sepsis Focused Exam Completed? Yes ED Sepsis Exam Date of Focused Sepsis Exam: 05/17/18 Time of Focused Sepsis Exam: 0 Sepsis Cardiac Exam: Regular Rate/Rhythm Sepsis Resp Exam: CTA Sepsis Cap Refill Exam: <2 Sec Sepsis Peripheral Pulse Exam: Normal Sepsis Peripheral Pulse Location: Dorsalis Pedis Sepsis Skin Color Exam: Normal for Ethnicity Skin Temp/Moisture Exam: Warm/Dry Progress Differential Diagnosis: appendicitis, cholecystitis, diverticulitis, gastritis, hepatitis Plan of Care: Orders Procedure Date/time Status Consistent Carbohydrate 3 05/18 B Active CBC WITHOUT DIFFERENTIAL 05/18 600 Active BASIC ELECTROLYTES PLUS BUN&CR 05/18 600 Active Turn and Reposition 05/18 310 Active Skin Integrity Protocol 07/09 0310 Active Pathway - chart 05/18 0252 Active House Staff 05/18 0252 Active Code Status 05/18 0252 Active FingerStick- Glucose 05/18 0247 Active Weight 05/18 0212 Active Vital Signs 05/18 0212 Active Teach/Educate 05/18 212 Active Pain Treatment and Response 05/18 212 Active Nutritional Intake, Monitor 05/18 212 Active Isolation 05/18 212 Active Intake & Output 05/18 021 Active Patient Care Conference 05/18 212 Active Activity/Ambulation 05/18 212 Active VTE Mechanical Prophylaxis 05/18 UNK Active Vital Signs 05/18 UNK Complete Intake & Output 05/18 UNK Complete Activity/Ambulation 05/18 UNK Complete Patient Data 05/17 2358 Active Add-on Test (ER Only) 05/17 235 Active Saline Lock 05/17 235 Active Misc Message 05/17 235 Active ED Holding Orders 05/17 2351 Active Admit to inpatient 05/17 2351 Active Vital Signs 05/17 2351 Active Code Status 05/17 2351 Complete BLOOD CULTURE 05/17 224 Active Add-on Test (ER Only) 05/17 223 Active BLOOD CULTURE 05/17 223 Active CULTURE,URINE 05/17 220 Active Intake & Output 05/17 2133 Active LACTIC ACID 05/17 2046 Complete URINALYSIS 05/17 2003 Complete TROPONIN LEVEL 05/17 1925 Complete LIPASE 05/17 1925 Complete HEPATIC FUNCTION PANEL 05/17 1925 Complete CBC WITHOUT DIFFERENTIAL 05/17 1925 Complete BASIC METABOLIC PANEL 05/17 1925 Complete AMYLASE 05/17 1925 Complete EKG 05/17 1925 Active Current Medications Sig/Jack Start time Last Medication Dose Stop Time Status Admin Ceftriaxone Sodium 2,000 MG DAILY 05/18 900 AC (Rocephin) Heparin Sodium 5,000 UNIT Q8 05/18 06 AC (Porcine) Morphine Sulfate 2 MG Q4P PRN 05/18 0345 AC (MORPHINE SULFATE) Ondansetron HCl 4 MG Q6P PRN 05/18 0345 AC (Zofran) Sodium Chloride 1,000 ML Q13H 05/18 0300 AC 05/18 (Normal Saline 0.9%) 0327 Acetaminophen 650 MG Q6P PRN 05/18 0215 AC (Tylenol) Laboratory Tests 05/17/18 2205: Urinalysis MANY H, Urine Color YEL, Urine Clarity TURBD H, Urine pH 6.0, Ur Specific Baxter 1.025, Urine Protein 100 H, Urine Ketones NEG, Urine Nitrite NEG, Urine Bilirubin NEG@ICTO, Urine Urobilinogen 1.0, Ur Leukocyte Esterase LARGE H, Ur Microscopic SEDIMENT EXAMINED, Urine RBC 1-3, Urine WBC PACKD H, Ur Epithelial Cells MOD H, Urine Bacteria PACKD H, Hyaline Casts RARE H, Granular Casts 1-3 H, Urine Mucus MOD H, Urine Hemoglobin TRACE-INTACT, Urine Glucose 100 H 05/17/182045: Lactic Acid 1.2, CBC w Diff MAN DIFF ORDERED, RBC 4.63, MCV 83.8, MCH 28.3, MCHC 33.8, RDW 16.9 H, MPV 8.9, Gran % 88.5 H, Lymphocytes % 4.4 L, Monocytes % 7.0, Eosinophils % 0, Basophils % 0.1, Absolute Granulocytes 16.3 H, Segmented Neutrophils 90 H, Band Neutrophils 2, Absolute Lymphocytes 0.8 L, Lymphocytes 5 L, Monocytes 3, Absolute Monocytes 1.3 H, Absolute Eosinophils 0, Absolute Basophils 0, Platelet Estimate ADEQUATE, Normocytic RBCs VERIFIED, Normochromic RBCs VERIFIED 05/17/18 2006: Anion Gap 17 H, Estimated GFR 46 L, BUN/Creatinine Ratio 25.8 H, Glucose 285 H, Calcium 9.1, Total Bilirubin 1.0, Direct Bilirubin 0.4, AST 25, ALT 23, Alkaline Phosphatase 107, Troponin I 0.02, Total Protein 6.6, Albumin 2.9 L, Amylase < 30 L, Lipase < 10 L Microbiology 05/170 BLOOD: Blood Culture - ORD 05/17 2237 BLOOD: Blood Culture - ORD 05/17 2205 URINE ROUT: Urine Culture - RECD Diagnostic Imaging: Viewed by Me: CT Scan. Discussed w/RAD: CT Scan. Radiology Impression: PATIENT: ANALISA BOWIE PRESENT AGE: 58 PATIENT ACCOUNT NO: [id number] : 58 LOCATION: [facility] ORDERING PHYSICIAN: Azar Olmstead MD SERVICE DATE: 05/17/18 EXAM TYPE: CAT - CT ABD & PELVIS W/O IV CONTRAS EXAMINATION: CT ABDOMEN AND PELVIS WITHOUT CONTRAST CLINICAL INFORMATION: Right lower quadrant pain COMPARISON: 04/01/2018 TECHNIQUE: Multidetector volumetric imaging was performed from the superior aspect of the liver through the pubic symphysis. Sagittal and coronal reformatted images were obtained on the technologist's workstation. DLP: 1510 mGy-cm FINDINGS: LUNG BASES: 0.3 cm right lower lobe nodule, series 2 image 3. This is unchanged. Coronary artery calcifications noted. LIVER, GALLBLADDER, AND BILIARY TREE: The liver is enlarged measuring 24 cm in CC dimension. The liver is normal in shape and attenuation. No focal hepatic lesion or biliary ductal dilatation is present. Cholecystectomy. PANCREAS: Unremarkable. SPLEEN: Unremarkable. ADRENAL GLANDS: Unremarkable. KIDNEYS AND URETERS: The kidneys are normal in size, shape, and attenuation. There is no current hydronephrosis. There is prominent asymmetric left perinephric stranding. This is a change from the prior study performed 04/01/2018. There is a left midpole 0.6 cm calculus which is 16 cm from the posterior axillary line. This is unchanged from prior. There are no additional calculi seen. The ureters are decompressed. BLADDER: Unremarkable. GASTROINTESTINAL TRACT: The stomach is decompressed with no gross abnormality. The small bowel is normal in caliber. There is no obstruction. There is colonic diverticulosis noted without evidence of diverticulitis. Normal appendix. No free air or free fluid. ABDOMINAL WALL: No significant hernia is appreciated. LYMPH NODES: Normal. VASCULAR: Unremarkable. PELVIC VISCERA: The uterus is not seen. No adnexal mass. OSSEOUS STRUCTURES: No acute or suspicious osseous abnormality. Multilevel degenerative changes noted in the spine. Mild degenerative changes of the hips. IMPRESSION: 1. Asymmetric left perinephric stranding which is a new finding from the prior study. No hydronephrosis. Unchanged appearance of a nonobstructing left midpole renal calculus. This appearance is nonspecific, and while a recently passed stone could have this appearance, the lack of change from prior makes an additional stone unlikely. Alternatively, an infectious process could be considered. 2. Hepatomegaly. 3. Unchanged 0.3 cm right lower lobe pulmonary nodule. DICTATED BY: Carmen ALVES, Reggie DATE/TIME DICTATED:05/17/182308 [employer]IN DEALER:LUNA DATE/TIME TRANSCRIBED:05/17/182308 CONFIDENTIAL, DO NOT COPY WITHOUT APPROPRIATE AUTHORIZATION. <Electronically signed in Other Vendor System> SIGNED BY: Carmen ALVES,Reggie 05/17/18 1154 Initial ED EKG: sinus tach Departure Departure Disposition: HOME OR SELF CARE Condition: Stable Clinical Impression Primary Impression: Sepsis Secondary Impressions: Dehydration, Pyelonephritis, Renal failure Referrals: Cecelia Rod APRN (PCP/Family) Departure Forms: Customer Survey General Discharge Information Admission Note Spoke With: Que Cárdenas MD Documentation of Exam: Documentation of any treatments & extenuating circumstances including Concerns Regarding Discharge (functional status, medication knowledge or non-compliance, living conditions, etc.) that warrant an admission rather than observation: pt with pyelonephritis, meets criteria for sepsis, merits iv abx, iv fluids.
[2018-05-17 20:54] LABS: ABSOLUTE BASOPHIL COUNT 0 /CUMM (0.0-0.2); ABSOLUTE EOSINOPHIL COUNT 0 /CUMM (0.0-0.7); ABSOLUTE GRANULOCYTE CT 16.3 /CUMM (1.4-6.5); ABSOLUTE LYMPH COUNT 0.8 /CUMM (1.2-3.4); ABSOLUTE MONOCYTE COUNT 1.3 /CUMM (0.10-0.60); BASOPHIL % 0.1 % (0.0-2.0); EOSINOPHIL % 0 % (0-5); GRANULOCYTE % 88.5 % (42.2-75.2); HEMATOCRIT 38.8 % (37-47); MEAN CORPUSCULAR HGB 28.3 PG (27.0-31.0); MEAN CORPUSCULAR HGB CONC 33.8 G/DL (33.0-37.0); MEAN CORPUSCULAR VOLUME 83.8 FL (81.0-99.0); MEAN PLATELET VOLUME 8.9 FL (7.4-10.4); PLATELET COUNT 257 /CUMM (130-400); RBC DISTRIBUTION WIDTH 16.9 % (11.5-14.5); RED BLOOD CELL CT 4.63 /CUMM (4.20-5.40); WHITE BLOOD CELL COUNT 18.4 /CUMM (4.8-10.8)
--- NOTE | 2018-05-17 23:17 | CT SCAN REPORT ---
EXAMINATION: CT ABDOMEN AND PELVIS WITHOUT CONTRAST CLINICAL INFORMATION: Right lower quadrant pain COMPARISON: 04/01/2018 TECHNIQUE: Multidetector volumetric imaging was performed from the superior aspect of the liver through the pubic symphysis. Sagittal and coronal reformatted images were obtained on the technologist's workstation. DLP: 1510 mGy-cm FINDINGS: LUNG BASES: 0.3 cm right lower lobe nodule, series 2 image 3. This is unchanged. Coronary artery calcifications noted. LIVER, GALLBLADDER, AND BILIARY TREE: The liver is enlarged measuring 24 cm in CC dimension. The liver is normal in shape and attenuation. No focal hepatic lesion or biliary ductal dilatation is present. Cholecystectomy. PANCREAS: Unremarkable. SPLEEN: Unremarkable. ADRENAL GLANDS: Unremarkable. KIDNEYS AND URETERS: The kidneys are normal in size, shape, and attenuation. There is no current hydronephrosis. There is prominent asymmetric left perinephric stranding. This is a change from the prior study performed 04/01/2018. There is a left midpole 0.6 cm calculus which is 16 cm from the posterior axillary line. This is unchanged from prior. There are no additional calculi seen. The ureters are decompressed. BLADDER: Unremarkable. GASTROINTESTINAL TRACT: The stomach is decompressed with no gross abnormality. The small bowel is normal in caliber. There is no obstruction. There is colonic diverticulosis noted without evidence of diverticulitis. Normal appendix. No free air or free fluid. ABDOMINAL WALL: No significant hernia is appreciated. LYMPH NODES: Normal. VASCULAR: Unremarkable. PELVIC VISCERA: The uterus is not seen. No adnexal mass. OSSEOUS STRUCTURES: No acute or suspicious osseous abnormality. Multilevel degenerative changes noted in the spine. Mild degenerative changes of the hips. IMPRESSION: 1. Asymmetric left perinephric stranding which is a new finding from the prior study. No hydronephrosis. Unchanged appearance of a nonobstructing left midpole renal calculus. This appearance is nonspecific, and while a recently passed stone could have this appearance, the lack of change from prior makes an additional stone unlikely. Alternatively, an infectious process could be considered. 2. Hepatomegaly. 3. Unchanged 0.3 cm right lower lobe pulmonary nodule.
--- NOTE | 2018-05-18 00:27 | History & Physical ---
Cuauhtemoc Garcia 05/18/18 0026: General Information and HPI MD Statement: I have seen and personally examined ANALISA BOWIE and documented this H&P. The patient is a 58 year old F who presented with a patient stated chief complaint of [left flank pain]. Source of Information: patient, old records Exam Limitations: poor historian History of Present Illness: Patient is a 58-year-old woman with a PMH significant for morbid obesity ( bedridden), Crohn's (on chronic steroids), kidney stones, diabetes mellitus, hypothyroidism, hyperlipidemia, depression, chronic pain presents with 3 days of vomiting, nausea, dysuria, frequency and left flank pain. She arrived BIBA from home. Patient is a very poor historian. She states that she has been having kidney stones for over a couple months. She also states that she has home health aide services to help with medications and self-care. According to patient she was a candidate for lithotripsy and stone removal, but a health services company was unable to transfer her to a center to get the procedure done due to her morbid obesity. She denies fever, chills, chest pain, diaphoresis, abdominal pain, diarrhea. 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 FH: colon cancer FATHER, ; Cause: Multiple myeloma. Psychosocial History Services at Home: Home Health Aide ETOH Use: denies use Review of Systems Review of Systems Constitutional: Denies: chills, diaphoresis, fever. EENTM: Reports: no symptoms. Cardiovascular: Denies: chest pain, syncope. Respiratory: Denies: short of breath. GI: Denies: abdominal pain, diarrhea. Genitourinary: Reports: dysuria, frequency. Musculoskeletal: Reports: no symptoms. Skin: Reports: no symptoms. Neurological/Psychological: Reports: no symptoms. Hematologic/Endocrine: Reports: no symptoms. Immunologic/Allergic: Reports: no symptoms. All Other Systems: Reviewed and Negative Exam & Diagnostic Data Last 24 Hrs of Vital Signs/I&O Vital Signs Date Time Temp Pulse Resp B/P B/P Pulse O2 O2 Flow FiO2 Mean Ox Delivery Rate 05/18 1144 90 110/60 05/18 0800 Room Air 05/18 0640 98.7 90 20 110/60 97 Room Air 05/18 0248 99.3 96 20 130/67 95 Room Air 05/18 0213 99.8 80 18 133/80 98 Room Air 05/18 0006 100.0 98 18 129/71 97 Room Air 05/17 2212 99.8 98 18 138/75 97 Room Air 05/17 1910 99.9 101 20 136/60 97 Room Air Intake & Output 05/18 1600 05/18 0800 05/18 0000 Intake Total 400 1000 Output Total 100 Balance 400 900 Intake, IV 300 1000 Intake, Oral 100 Output, Urine 100 Patient 293 lb Weight Weight Bed scale Measurement Method Physical Exam General Appearance Alert, Cooperative, No Acute Distress Skin No Rashes Skin Temp/Moisture Exam: Warm/Dry Sepsis Skin Exam (color): Normal for Ethnicity HEENT Atraumatic, PERRLA, EOMI Neck Supple, No JVD Cardiovascular Normal S1, Normal S2 Lungs Clear to Auscultation Abdomen Normal Bowel Sounds, Soft, No Tenderness Last 24 Hrs of Labs/Jey: Laboratory Tests 05/18/18 1120: Anion Gap 14, Estimated GFR 36 L, BUN/Creatinine Ratio 20.7 05/18/18 1020: CBC w Diff MAN DIFF ORDERED, RBC 4.52, MCV 83.0, MCH 28.5, MCHC 34.3, RDW 16.7 H, MPV 9.4, Gran % 90.2 H, Lymphocytes % 3.5 L, Monocytes % 6.3, Eosinophils % 0, Basophils % 0, Absolute Granulocytes 13.2 H, Segmented Neutrophils 80 H, Band Neutrophils 12 H, Absolute Lymphocytes 0.5 L, Lymphocytes 6 L, Monocytes 2, Absolute Monocytes 0.9 H, Absolute Eosinophils 0, Absolute Basophils 0, Platelet Estimate ADEQUATE, Normocytic RBCs VERIFIED, Normochromic RBCs VERIFIED 05/17/18 2205: Urinalysis MANY H, Urine Color YEL, Urine Clarity TURBD H, Urine pH 6.0, Ur Specific [place] 1.025, Urine Protein 100 H, Urine Ketones NEG, Urine Nitrite NEG, Urine Bilirubin NEG@ICTO, Urine Urobilinogen 1.0, Ur Leukocyte Esterase LARGE H, Ur Microscopic SEDIMENT EXAMINED, Urine RBC 1-3, Urine WBC PACKD H, Ur Epithelial Cells MOD H, Urine Bacteria PACKD H, Hyaline Casts RARE H, Granular Casts 1-3 H, Urine Mucus MOD H, Urine Hemoglobin TRACE-INTACT, Urine Glucose 100 H 05/17/182045: Lactic Acid 1.2, CBC w Diff MAN DIFF ORDERED, RBC 4.63, MCV 83.8, MCH 28.3, MCHC 33.8, RDW 16.9 H, MPV 8.9, Gran % 88.5 H, Lymphocytes % 4.4 L, Monocytes % 7.0, Eosinophils % 0, Basophils % 0.1, Absolute Granulocytes 16.3 H, Segmented Neutrophils 90 H, Band Neutrophils 2, Absolute Lymphocytes 0.8 L, Lymphocytes 5 L, Monocytes 3, Absolute Monocytes 1.3 H, Absolute Eosinophils 0, Absolute Basophils 0, Platelet Estimate ADEQUATE, Normocytic RBCs VERIFIED, Normochromic RBCs VERIFIED 05/17/18 2006: Anion Gap 17 H, Estimated GFR 46 L, BUN/Creatinine Ratio 25.8 H, Glucose 285 H, Calcium 9.1, Total Bilirubin 1.0, Direct Bilirubin 0.4, AST 25, ALT 23, Alkaline Phosphatase 107, Troponin I 0.02, Total Protein 6.6, Albumin 2.9 L, Amylase < 30 L, Lipase < 10 L Microbiology 05/18 1020 BLOOD: Blood Culture - RECD 05/18 0911 BLOOD: Blood Culture - RECD 05/17 2205 URINE ROUT: Urine Culture - RES GRAM NEGATIVE RODS Assessment/Plan Assessment: Vitals on admission were MAXIMUM TEMPERATURE of 99.5, heart rate 101, respiratory rate 20, BP 136/60 and O2 sats 97% on room air. Patient was lethargic/drowsy and had left-sided CVA tenderness on examination. WBC count of 18.4 with 2 bands, H&H 13.1/38.8, platelet count 257, sodium 1:30, potassium 5.4, chloride 95, UN/53 1/1.2 and blood glucose 285. MRI is and lipase level were negative. Normal lactic acid level but had an anion gap of 17. UA positive with positive leukocyte esterase and WBC count but also shows high epithelial cells. CT abdomen and pelvis; showed an asymmetric left perinephric stranding and was negative for any hydronephrosis. Problem list: 1. Sepsis 2/2 Pyleonephritis (meets criteria d.t elevated wbc, HR 101, +ve source of infection in L kidney) 2. Nausea and Vomiting 3. Morbid Obesity 4. DM 5. Depression & Anxiety 6. Social Issues - d/t obesity and accessability - Admit patient to the general medicine floor - Start the patient on IV levofloxacin or ceftriaxon - Follow urine cx - Urology consult - zofran as needed for N and V - CBC with diff and BMP - Pain management (for her chronic pain) - Accuchecks - NovoLog Sliding Scale - DVT ppx: SCDs and SubQ Heparin - Full Code As Ranked By This Provider Problem List: 1. Pyelonephritis 2. Nausea & vomiting 3. Morbid obesity 4. Anxiety 5. Diabetes mellitus type 2 6. Renal colic on left side 7. Chronic pain Core Measures/Misc (07/27) Acute Coronary Syndrome ACS Diagnosis: No Congestive Heart Failure Congestive Heart Failure Diagnosis No Cerebrovascular Accident CVA/TIA Diagnosis: No VTE (View Protocol) VTE Risk Factors Immobility No Mechanical VTE Prophylaxis d/t N/A MechProphylax Ordered No VTE Pharm Prophylaxis d/t NA PharmProphylax ordered Sepsis (View protocol) Sepsis Present: Yes If YES complete Sepsis Event Note If YES complete Sepsis Event Note Inpatient Sepsis Exam Sepsis Cardiac Exam: Tachycardia Sepsis Resp Exam: CTA Sepsis Cap Refill Exam: >2 sec Sepsis Peripheral Pulse Exam: Normal Sepsis Peripheral Pulse Location: Dorsalis Pedis Sepsis Skin Color Exam: Normal for Ethnicity Skin Temp/Moisture Exam: Warm/Dry Aki ALVES,[facility] 05/18/18 0505: General Information and HPI Allergies/Medications Home Med list Alprazolam 2 MG TABLET 1 TAB PO Q6H ANXIETY Alprazolam 2 MG TABLET 1 TAB PO Q6 anxiety Amlodipine Besylate (Unknown Strength) TABLET (Unknown Dose) PO DAILY BP ( Reported) Carvedilol 6.25 MG TABLET 1 TAB PO BID BP (Reported) Ciprofloxacin HCl (Cipro) 500 MG TABLET 1 TAB PO BID uti Clotrimazole 1 % CREAM..G. 1 GARY TOP AD SKIN (Reported) apply to affected area(s) Fluoxetine HCl 20 MG CAPSULE 3 CAP PO QAM MENTAL HEALTH (Reported) Glipizide 5 MG TABLET 1 TAB PO BID DIABETES (Reported) Hydralazine HCl 100 MG TABLET 1 TAB PO BID HEART (Reported) Hydrocodone/Acetaminophen (Hydrocodon-Acetaminophn 10-300) 10 MG-300 MG TABLET 1 TAB PO Q6 PAIN (Reported) Insulin Aspart, Recombinant (Novolog Flexpen) 100 UNIT/ML INSULN.PEN DM ( Reported) Insulin Glargine,Hum.rec.anlog (Lantus Solostar) (Unknown Strength) INSULN.PEN (Unknown Dose) SC QAM DM (Reported) Ketoconazole 2 % CREAM..G. 1 GARY TOP AD SKIN (Reported) apply to affected area(s) Lisinopril (Unknown Strength) TABLET (Unknown Dose) PO DAILY BP (Reported) Losartan Potassium (Cozaar) 50 MG TABLET 1 TAB PO DAILY HYPERTENSION Nystatin (Nyamyc) 100,000 UNIT/GRAM POWDER 1 GARY TOP BID RASH (Reported) Omeprazole (Unknown Strength) CAPSULE.DR (Unknown Dose) PO DAILY SUPPLEMENT ( Reported) Ondansetron (Zofran Odt) 4 MG TAB.RAPDIS 1 TAB SL TID PRN nausea Oxybutynin Chloride (Unknown Strength) TABLET (Unknown Dose) PO BID BLADDER ( Reported) Oxycodone HCl 5 MG TABLET 1 TAB PO 4XDP PRN pain Topiramate (Topamax) (Unknown Strength) TABLET (Unknown Dose) PO BID UNKNOWN (Reported) Venlafaxine HCl 100 MG TABLET 1 TAB PO BID MENTAL HEALTH (Reported) Zinc Oxide (Desitin) 13 % CREAM..G. 1 GARY TOP TID SKIN (Reported) Core Measures/Misc (07/27) Sepsis (View protocol) If YES complete Sepsis Event Note If YES complete Sepsis Event Note Resident Review Statement Resident Statement: examined this patient, discussed with marketing pr intern, agreed with marketing pr intern, reviewed EMR data (avail), discussed with nursing, reviewed images Other Findings: Ms. Bowie is a morbidly obese 58 y/o lady with PMH significant for type 2 diabetes, hypertension, hyperlipidemia, Crohn's disease, diverticulitis, chronic back pain, anxiety, depression and morbid obesity presents with nausea and vomiting for the past 3 days. Patient mentionshc of left kidney stone which was supposed to be extracted couple of weeks ago and was postponed because she was not picked up by the transportation service(per the patient she cannot have the lithotripsy done because of her weight). She knows comes in with vomiting started couple of days ago, reports getting 5 episodes of vomiting per day, unsure about the color of vomitus. Also reports feeling hot but unsure if she had a fever. Does report having chills which started on the same day as the nausea and vomiting. She was given some pills by her home health aid for nausea/vomiting with some relief. She also have left sided flank pain that has been going on for a couple months. She denies any urinary symptoms except for increased frequency which is not new for her. Vitals on admission were MAXIMUM TEMPERATURE of 99.5, heart rate 101, respiratory rate 20, BP 136/60 and O2 sats 97% on room air. Patient was lethargic/drowsy and had left-sided CVA tenderness on examination. She had a WBC count of 18.4 with 2 bands, H&H 13.1/38.8, platelet count 257, sodium 1:30, potassium 5.4, chloride 95, UN/53 1/1.2 and blood glucose 285. MRI is and lipase level were negative. She had a normal lactic acid level but had an anion gap of 17. UA positive with positive leukocyte esterase and WBC count but also shows high epithelial cells. CT abdomen and pelvis; showed an asymmetric left perinephric stranding and was negative for any hydronephrosis. Problem list; 1. Sepsis 2/2 Pyelonephritis : She meets his calf area with elevated WBC count and heart rate of 101 and a positive source of infection in the left kidney. 2. Morbid obesity 3. Chronic medical conditions - Admit the patient to general medicine floor - Start the patient on IV ceftriaxone. - Patient received 1 L of normal saline in the ER, will continue gentle IV fluids. - Follow blood and urine cultures - Urology consult - Zofran as needed for nausea and vomiting - Repeat CBC and BEP in am. - Pain management. - NovoLog sliding scale and Accu-Cheks - Patient does not have her medication list and also does not have contact information for her home health aide, patient told to get contact informationof home health aide, will resume medications after confirming. DVT prophylaxis; Alps and subcutaneous Heparin Patient is full code Que Cárdenas MD 05/18/18 0556: General Information and HPI MD Statement: I have seen and personally examined ANALISA BOWIE and documented this H&P. The patient is a 58 year old F who presented with a patient stated chief complaint of [pyelonephritis]. Source of Information: patient Allergies/Medications Allergies: Coded Allergies: NSAIDS (Non-Steroidal Anti-Inflamma (CROHNS/DIVERTICULOSIS 04/01/18) aspirin (CROHNS/DIVERTICULOSIS 04/01/18) furosemide (From LASIX) ("ENZYMES WENT ABIMBOLA HIGH" 04/01/18) Past History Medical History Cardiovascular: hypertension Gastrointestinal: Crohn's disease, diverticulitis Renal: nephrolithiasis Psychiatric: anxiety, depression Endocrine: diabetes Past Family/Social History Psychosocial History ETOH Use: denies use Review of Systems Review of Systems Constitutional: Reports: see HPI. Exam & Diagnostic Data Last 24 Hrs of Vital Signs/I&O Vital Signs Date Time Temp Pulse Resp B/P B/P Pulse O2 O2 Flow FiO2 Mean Ox Delivery Rate 05/18 0248 99.3 96 20 130/67 95 Room Air 05/18 0213 99.8 80 18 133/80 98 Room Air 05/18 0006 100.0 98 18 129/71 97 Room Air 05/17 2212 99.8 98 18 138/75 97 Room Air 05/17 1910 99.9 101 20 136/60 97 Room Air Intake & Output 05/18 0800 05/18 0000 05/17 1600 Intake Total 1000 Output Total 100 Balance 900 Intake, IV 1000 Output, Urine 100 Patient 293 lb Weight Weight Bed scale Measurement Method Physical Exam General Appearance Alert, Oriented X3, Cooperative, No Acute Distress HEENT Atraumatic, PERRLA, EOMI Neck Supple, No JVD Cardiovascular Regular Rate, Normal S1, Normal S2 Lungs Clear to Auscultation Abdomen Normal Bowel Sounds, Soft, No Tenderness Last 24 Hrs of Labs/Jey: Laboratory Tests 05/17/18 2205: Urinalysis MANY H, Urine Color YEL, Urine Clarity TURBD H, Urine pH 6.0, Ur Specific [place] 1.025, Urine Protein 100 H, Urine Ketones NEG, Urine Nitrite NEG, Urine Bilirubin NEG@[email or web address], Urine Urobilinogen 1.0, Ur Leukocyte Esterase LARGE H, Ur Microscopic SEDIMENT EXAMINED, Urine RBC 1-3, Urine WBC PACKD H, Ur Epithelial Cells MOD H, Urine Bacteria PACKD H, Hyaline Casts RARE H, Granular Casts 1-3 H, Urine Mucus MOD H, Urine Hemoglobin TRACE-INTACT, Urine Glucose 100 H 05/17/182045: Lactic Acid 1.2, CBC w Diff MAN DIFF ORDERED, RBC 4.63, MCV 83.8, MCH 28.3, MCHC 33.8, RDW 16.9 H, MPV 8.9, Gran % 88.5 H, Lymphocytes % 4.4 L, Monocytes % 7.0, Eosinophils % 0, Basophils % 0.1, Absolute Granulocytes 16.3 H, Segmented Neutrophils 90 H, Band Neutrophils 2, Absolute Lymphocytes 0.8 L, Lymphocytes 5 L, Monocytes 3, Absolute Monocytes 1.3 H, Absolute Eosinophils 0, Absolute Basophils 0, Platelet Estimate ADEQUATE, Normocytic RBCs VERIFIED, Normochromic RBCs VERIFIED 05/17/182005: Anion Gap 17 H, Estimated GFR 46 L, BUN/Creatinine Ratio 25.8 H, Glucose 285 H, Calcium 9.1, Total Bilirubin 1.0, Direct Bilirubin 0.4, AST 25, ALT 23, Alkaline Phosphatase 107, Troponin I 0.02, Total Protein 6.6, Albumin 2.9 L, Amylase < 30 L, Lipase < 10 L Microbiology 05/17 2240 BLOOD: Blood Culture - COLB 05/17 2237 BLOOD: Blood Culture - COLB 05/17 2205 URINE ROUT: Urine Culture - RECD Core Measures/Misc (07/27) Sepsis (View protocol) If YES complete Sepsis Event Note If YES complete Sepsis Event Note Attending MD Review Statement Attending Statement Attending MD Statement: examined this patient, discuss w/resident/PA/RVDA MASTER CERTIFIED RV TECHNICIAN Attending Assessment/Plan: This patient is a 58 year old obese female with multiple medical problems including diabetes, Crohn's disease and recurrent urinary tract infections. She comes into the emergency department today with a five-day history of nausea vomiting and diarrhea. While in the emergency department she is found to have a low-grade temperature and an elevated white blood cell count 18.4. A CT scan of her abdomen and pelvis was performed which demonstrated asymmetric left perinephric stranding without hydronephrosis. The patient was started on ceftriaxone. Cultures pending.
[2018-05-18 02:48] VITALS: BP 130/67
[2018-05-18 06:40] VITALS: BP 110/60
--- NOTE | 2018-05-18 07:38 | Event Note ---
Event Note Event Note: Patient seen and examined today. She is a 58-year-old female with a past medical history of Crohn's disease, kidney stones, diabetes that is here with a chief complaint of left flank pain, nausea, vomiting. She was found on CT to have asymmetric left perinephric stranding which is a new finding from her prior study, no hydronephrosis, unchanged appearance of a nonobstructing left midpole renal calculus. She was found to have evidence of UTI on urinalysis and elevated WBC count, with a low-grade temperature in the emergency department. She is being treated for pyelonephritis with ceftriaxone 2 g daily. The patient was admitted overnight and early this morning, states that she feels "extremely tired and worn out". She still feels nauseous and last vomited in the emergency department overnight. She continues to have left-sided pain that is not well controlled on morphine 2 mg every 4 hours as needed. The patient does not walk at baseline and lives alone in a house with 3 aides that come to help her with daily chores and medication administration. However the patient's hygiene is lacking and she notes that she requires more help than she is getting. Physical exam reveals pain over the left flank, worse on palpation. Normal cardiac and lung exams. The patient has scattered skin rashes in her skin folds. She has previously been to the wound center to see Dr. Soto with administration of triamcinolone cream and nystatin powder. Her vitals overnight are stable. Labs showed hyponatremia with sodium increasing from 130 on admission to 132 today. Potassium decreased from 5.4 on admission to 4.3 today. Her WBC count decreased from 18.4 on admission to 14.7 today. The patient is currently afebrile. The patient's creatinine has steadily risen from admission of 1.0-1.5 today. Plan Continue patient on 2 g of ceftriaxone for pyelonephritis Her urine culture has grown gram-negative rods, wait for sensitivities. Repeat CBCs and BEP tomorrow. Continue fluids at a rate of 75 cc/h normal saline as patient has evidence of ANKIT as well as hyponatremia Continue current pain control for now with plan to alter pain regimen if patient pain does not get better. We will defer urology consult at this point but will have patient follow-up with Dr. Smith as an outpatient for her history of kidney stones. Of note patient did have several appointments with her but was not able to get to the office as her transportation service has been unreliable. Zofran as needed for nausea and vomiting Physical therapy and case management consult for placement as patient requires more help than she is getting at home As patient is not eating, we will place her on a Novolin n.p.o. sliding scale dose We have confirmed the patient's medications with her pharmacy and they are as follows: Triamcinolone 0.1% twice daily, Xanax 1 mg every 6 hours scheduled, effects or 100 mg twice daily, hydralazine 100 mg twice daily, Topamax 50 mg twice daily, Pepcid 20 mg twice daily, Lipitor 40 mg daily. We will continue these medications. We will hold her glipizide extended release 2.5 mg daily, her NovoLog 25 units 3 times daily, her Levemir 15 units twice daily, and her lisinopril 40 mg daily as she has ANKIT. We will give her 7 units twice daily for her Levemir. Of note her sugars this morning are over 300. Patient is currently n.p.o. Patient is full code DVT prophylaxis with Alps and heparin.
--- NOTE | 2018-05-18 10:08 | PN- Att Addend ---
Attending Addendum Attending Brief Note Patient seen and examined during rounds. This is a 58-year-old female with multiple medical problems including morbid obesity, diabetes, depression, hypothyroidism and previous history of kidney stones. A shunt is bedbound at baseline. She says for the last 10 years she has not been able to get out of bed and she has aides with her through the day. She also says that she is followed at the wound care center by Dr. Dash for many years. She is here with acute nausea vomiting and flank pain. She has leukocytosis with a left shift, ANKIT with an anion gap acidosis and a positive UA on straight cath specimen. We have her on IV ceftriaxone and was treating her for a pyelonephritis. We are hydrating her and giving her antiemetics. We need to clarify all of her medications with [facility] and restart the same including her diabetes and psychiatric medications. We put in a PT eval for physical therapy- bedside exercises she has severe intertriginous candidiasis and will start nystatin cream and keep a low threshold to get wound care involved.
[2018-05-18 10:47] LABS: ABSOLUTE BASOPHIL COUNT 0 /CUMM (0.0-0.2); ABSOLUTE EOSINOPHIL COUNT 0 /CUMM (0.0-0.7); ABSOLUTE GRANULOCYTE CT 13.2 /CUMM (1.4-6.5); ABSOLUTE LYMPH COUNT 0.5 /CUMM (1.2-3.4); ABSOLUTE MONOCYTE COUNT 0.9 /CUMM (0.10-0.60); BASOPHIL % 0 % (0.0-2.0); EOSINOPHIL % 0 % (0-5); GRANULOCYTE % 90.2 % (42.2-75.2); HEMATOCRIT 37.5 % (37-47); MEAN CORPUSCULAR HGB 28.5 PG (27.0-31.0); MEAN CORPUSCULAR HGB CONC 34.3 G/DL (33.0-37.0); MEAN PLATELET VOLUME 9.4 FL (7.4-10.4); PLATELET COUNT 222 /CUMM (130-400); RBC DISTRIBUTION WIDTH 16.7 % (11.5-14.5); RED BLOOD CELL CT 4.52 /CUMM (4.20-5.40); WHITE BLOOD CELL COUNT 14.7 /CUMM (4.8-10.8)
[2018-05-18] MEDS ORDERED: ALPRAZOLAM2 M2 PO ×2 (10:55→11:39)
[2018-05-18 13:52] VITALS: BP 130/68
[2018-05-18 22:16] VITALS: BP 124/66
[2018-05-19 06:53] VITALS: BP 130/70
--- NOTE | 2018-05-19 07:33 | PN- Housestaff ---
Rajeev ALVES,Marisel 05/19/18 0733: Subjective Follow-up For: Pyelonephritis Fungal skin infection Inability to care for herself/placement issues Subjective: Patient was seen and examined. She states that overall she feels a bit better from yesterday. She complains of continued flank pain on the left side. She is no longer nauseous and vomited last yesterday. The patient is hungry and is eating breakfast, the first she has eaten since her admission. She states that the itchiness on her skin is mostly confined to the groin area and skin folds and is "worse than ever". The patient states that her pain has not been covered on the morphine 2 mg every 4 but of note, the patient has not taken very many doses. This morning she is on fluids at a rate of 75 mL per hour. On discussion with the patient about her plans, she states that she does not want to go to a prison. However, the patient does not have 24/7 home care service and is alone from about 8 PM to 7 AM every day. Of note she does have a friend that helps her but notes that he is "constantly drunk". Review of Systems Constitutional: Reports: no symptoms. EENTM: Reports: no symptoms. Cardiovascular: Reports: no symptoms. Respiratory: Reports: no symptoms. Gastrointestinal: Reports: no symptoms. Genitourinary: Reports: no symptoms. Musculoskeletal: Reports: back pain (flank). Skin: Reports: change in skin color, erythema. Neurological/Psychological: Reports: no symptoms. Hematologic/Endocrine: Reports: no symptoms. Objective Last 24 Hrs of Vital Signs/I&O Vital Signs Date Time Temp Pulse Resp B/P B/P Pulse O2 O2 Flow FiO2 Mean Ox Delivery Rate 05/19 922 107 130/70 05/19 08 Room Air 05/19 0653 98.9 107 20 130/70 94 Room Air 05/18 2216 98.7 88 20 124/66 97 Room Air 05/18 2014 98.8 96 20 130/68 05/18 1600 Room Air 05/18 1352 98.8 96 20 130/68 96 Room Air Intake & Output 05/19 1600 05/19 0800 05/19 0000 Intake Total 840 675 Output Total Balance 840 675 Intake, IV 600 675 Intake, Oral 240 Number 2 Bowel Movements Physical Exam General Appearance: Alert, Oriented X3, Cooperative, No Acute Distress Skin: patient has disseminated intertriginous candidiasis, mostly in the groin and axilla. Skin is erythematous and pruritic. Skin Temp/Moisture Exam: Warm/Dry Sepsis Skin Exam (color): Normal for Ethnicity HEENT: Atraumatic, PERRLA, EOMI Cardiovascular: Regular Rate, Normal S1, Normal S2, No Murmurs Lungs: Clear to Auscultation, Normal Air Movement Abdomen: Normal Bowel Sounds, Soft, No Tenderness, No Hepatospenomegaly, No Masses Neurological: Normal Speech Extremities: No Clubbing, No Cyanosis, No Edema, Normal Pulses, No Tenderness/ Swelling Vascular: Normal Pulses, Pulses Symmetrical Sepsis Peripheral Pulse Location: Radial Current Medications: Current Medications Sig/Jack Start time Last Medication Dose Route Stop Time Status Admin Acetaminophen 650 MG Q6P PRN 05/18 0215 AC PO Alprazolam 1 MG Q6 05/18 1200 AC 05/19 PO 05/25 1159 0544 Atorvastatin Calcium 40 MG 1700 05/18 1700 AC 05/18 PO 2014 Ceftriaxone Sodium 2,000 MG DAILY 05/18 0900 AC 05/19 IV 0920 Heparin Sodium 5,000 UNIT Q8 05/18 0600 AC 05/19 (Porcine) SC 0544 Hydralazine HCl 100 MG BID 05/18 1049 AC 05/19 PO 0922 Insulin Aspart 0 TIDAC 05/19 1200 AC SC Insulin Detemir 7 UNITS BID 05/18 1057 AC 05/19 SC 0921 Insulin Human Regular 1 UNITS .STK-MED ONE 05/19 0014 DC IV 05/19 0015 Insulin Human Regular 0 Q6 05/18 0945 DC 05/19 SC 0549 Morphine Sulfate 2 MG Q4P PRN 05/18 0345 AC 05/18 IV 1144 Nystatin 1 GARY BID 05/18 0933 AC 05/19 TOP 0920 Omeprazole 20 MG BID 05/18 1049 AC 05/19 PO 0922 Ondansetron HCl 4 MG Q6P PRN 05/18 0345 AC 05/18 IV 2015 Oxycodone HCl 5 MG Q6P PRN / 0900 AC 05/19 PO 0925 Sodium Chloride 1,000 ML Q13H 05/18 0300 DC 05/18 IV 2028 Topiramate 50 MG BID 05/18 1050 AC 05/19 PO 0921 Triamcinolone 1 GARY BID 05/18 1056 AC 05/19 Acetonide TOP 0921 Venlafaxine HCl 100 MG BID 05/18 1051 AC 05/19 PO 09 Last 24 Hrs of Lab/Jey Results Last 24 Hrs of Labs/Mics: Laboratory Tests 05/19/18 0607: Anion Gap 12, Estimated GFR 46 L, BUN/Creatinine Ratio 20.0, CBC w Diff NO MAN DIFF REQ, RBC 4.01 L, MCV 83.2, MCH 28.4, MCHC 34.1, RDW 16.9 H, MPV 10.0, Gran % 78.9 H, Lymphocytes % 8.5 L, Monocytes % 11.9 H, Eosinophils % 0.5, Basophils % 0.2, Absolute Granulocytes 6.7 H, Absolute Lymphocytes 0.7 L, Absolute Monocytes 1.0 H, Absolute Eosinophils 0, Absolute Basophils 0 Assessment/Plan Assessment: 58-year-old female with a past medical history of Crohn's disease, kidney stones , diabetes that is here with a chief complaint of left flank pain, nausea, vomiting. She was found on CT to have asymmetric left perinephric stranding which is a new finding from her prior study, no hydronephrosis, unchanged appearance of a nonobstructing left midpole renal calculus. She was found to have evidence of UTI on urinalysis and elevated WBC count, with a low-grade temperature in the emergency department. She is being treated for pyelonephritis with ceftriaxone 2 g daily. The patient does not walk at baseline and lives alone in a house with 3 aides that come to help her with daily chores and medication administration by who are not there at all times and she is alone from the hours of 8 PM to 7 AM. The patient's hygiene is lacking and she notes that she requires more help than she is getting. Physical exam reveals pain over the left flank, worse on palpation. Normal cardiac and lung exams. The patient has scattered skin rashes in her skin folds. She has previously been to the wound center to see Dr. Soto with administration of triamcinolone cream and nystatin powder. Vitals overnight are stable except for elevated heart rate 107. Labs done today show stable sodium level, potassium 3.7, decreased creatinine from 1.5-1.2, decreased WBC count from 18.7-8.6. Urine culture has been found to grow Escherichia coli. Plan Continue patient on 2 g of ceftriaxone for pyelonephritis Her urine culture has grown gram-negative rods, found to be Escherichia coli, wait for sensitivities. WBC count has fallen from 14.7 yesterday to 8.6 today. Patient's creatinine has fallen from 1.5 yesterday to 1.2 today. Her sodium remained on the low side at 131. We will stop her fluids today and encourage by mouth fluid intake. We will change the patient's pain medications from morphine 2 mg every 4 to oxycodone 5 mg every 6 and reassess. We will defer urology consult at this point but will have patient follow-up with Dr. Smith as an outpatient for her history of kidney stones. Of note patient did have several appointments with her but was not able to get to the office as her transportation service has been unreliable. Taste management is working with the patient on this front. Zofran as needed for nausea and vomiting Physical therapy and case management consult for placement as patient requires more help than she is getting at home. As patient is eating we will switch her Novolin nothing by mouth sliding scale insulin to NovoLog medium dose sliding scale insulin. Patient is slightly tachycardic this morning up to 107, sustained. We will order 12-lead EKG to assess. Continue the patient on triamcinolone cream and nystatin powder for her candidiasis. We have confirmed the patient's medications with her pharmacy and they are as follows: Triamcinolone 0.1% twice daily, Xanax 1 mg every 6 hours scheduled, effects or 100 mg twice daily, hydralazine 100 mg twice daily, Topamax 50 mg twice daily, Pepcid 20 mg twice daily, Lipitor 40 mg daily. We will continue these medications. We will hold her glipizide extended release 2.5 mg daily, her NovoLog 25 units 3 times daily, her Levemir 15 units twice daily, and her lisinopril 40 mg daily as she has ANKIT. We will give her 7 units twice daily for her Levemir. Patient is currently n.p.o. Patient is full code DVT prophylaxis with Alps and heparin. Problem List: 1. Pyelonephritis 2. Acute renal failure (ARF) 3. Laurel infection of flexural skin Pain Ratin Pain Location: left flank Pain Goal: Pain 4 or less Pain Plan: oxycodone 5mg q6h Tomorrow's Labs & Rationales: valery Blancas MD,Gabi 05/19/18 1040: Attending MD Review Statement Attending Statement Attending MD Statement: examined this patient, discuss w/resident/PA/PATHOLOGY SUPERVISOR, agreed w/resident/PA/PATHOLOGY SUPERVISOR, reviewed EMR data (avail), discussed with nursing, discussed with case mgmt, reviewed images Attending Assessment/Plan: Spoke to patient at length this morning with the vp digital marketing social media and crm and caser shoe parts present. I am concerned about a safe discharge plan as patient is very adamantly opposed to going to any kind of rehabilitation or extended care facility. She doesn't have aides 24x 7. On review it appears that she has some help between friends and aides till about 8 PM at night and then she is alone till about 7 in the morning. She is morbidly obese and bed bound and has a hard time with transportation to her medical visits. Her skin is intact although she has severe candidiasis in her skin folds and we are treating her for sepsis of urological origin with ANKIT and dehydration with uncontrolled diabetes. Her sugars are better and we will put her back on her usual Levemir and NovoLog. We 'll stop the fluids now that the creatinine is slightly better. Her white count is markedly improved and will encourage by mouth intake. I clearly explained to the patient that I think medically she may be ready for discharge in a.m. Case management and vp digital marketing social media and crm trying to sort out the home situation as best they can. 'll stop the fluids now that the creatinine is slightly better. Her white count is markedly improved and will encourage by mouth intake. I clearly explained to the patient that I think medically she may be ready for discharge in a.m. Case management and vp digital marketing social media and crm trying to sort out the home situation as best they can.
[2018-05-19 08:24] LABS: ABSOLUTE BASOPHIL COUNT 0 /CUMM (0.0-0.2); ABSOLUTE EOSINOPHIL COUNT 0 /CUMM (0.0-0.7); ABSOLUTE GRANULOCYTE CT 6.7 /CUMM (1.4-6.5); ABSOLUTE LYMPH COUNT 0.7 /CUMM (1.2-3.4); BASOPHIL % 0.2 % (0.0-2.0); EOSINOPHIL % 0.5 % (0-5); GRANULOCYTE % 78.9 % (42.2-75.2); HEMATOCRIT 33.4 % (37-47); MEAN CORPUSCULAR HGB 28.4 PG (27.0-31.0); MEAN CORPUSCULAR HGB CONC 34.1 G/DL (33.0-37.0); MEAN CORPUSCULAR VOLUME 83.2 FL (81.0-99.0); PLATELET COUNT 200 /CUMM (130-400); RBC DISTRIBUTION WIDTH 16.9 % (11.5-14.5); RED BLOOD CELL CT 4.01 /CUMM (4.20-5.40); WHITE BLOOD CELL COUNT 8.6 /CUMM (4.8-10.8)
[2018-05-19 13:54] VITALS: BP 140/80
[2018-05-19 20:59] VITALS: BP 130/70
[2018-05-20 06:10] VITALS: BP 150/80
--- NOTE | 2018-05-20 07:15 | PN- Housestaff ---
Rajeev ALVES,Marisel 05/20/18 0715: Subjective Follow-up For: Pyelonephritis Inability to care for self Fungal skin infection Subjective: Patient seen and examined. Today the patient has some altered mental status and is alert and oriented x1. She states that she was nauseous and vomiting this morning but nursing reports no such event. She states that she still has the same left flank pain. The patient has stable vitals and is still at 96% on room air, afebrile, normotensive. The patient continues to have the same fungal skin wounds. Review of Systems Constitutional: Reports: no symptoms. Cardiovascular: Reports: no symptoms. Respiratory: Reports: no symptoms. Gastrointestinal: Reports: no symptoms. Genitourinary: Reports: no symptoms. Musculoskeletal: Reports: back pain. Skin: Reports: erythema, lesions. Neurological/Psychological: Reports: cognitive dysfunction. Objective Last 24 Hrs of Vital Signs/I&O Vital Signs Date Time Temp Pulse Resp B/P B/P Pulse O2 O2 Flow FiO2 Mean Ox Delivery Rate 05/20 1513 98.2 99 20 142/72 99 Room Air 05/20 0932 91 150/80 05/20 0800 Room Air 05/20 0610 99.2 91 20 150/80 96 Room Air 05/19 2059 99.2 86 18 130/70 96 Room Air 05/19 2018 98.8 98 140/80 Intake & Output 05/20 1600 05/20 0800 05/20 0000 Intake Total 1000 200 300 Output Total Balance 1000 200 300 Intake, Oral 1000 200 300 Number 1 Bowel Movements Physical Exam General Appearance: Alert, No Acute Distress Skin: No Significant Lesion, patient has scattered intertriginous candidal infection Skin Temp/Moisture Exam: Warm/Dry Sepsis Skin Exam (color): Normal for Ethnicity HEENT: Atraumatic, PERRLA, EOMI, Mucous Membr. moist/pink Cardiovascular: Regular Rate, Normal S1, Normal S2, No Murmurs Lungs: rhonchi appreciated in lower lung santiago. Abdomen: Normal Bowel Sounds, Soft, No Tenderness Neurological: Normal Speech Extremities: No Clubbing, No Cyanosis, No Edema, Normal Pulses, No Tenderness/ Swelling Vascular: Normal Pulses, Pulses Symmetrical Current Medications: Current Medications Sig/Jack Start time Last Medication Dose Route Stop Time Status Admin Acetaminophen 650 MG Q6P PRN 05/18 0215 AC PO Alprazolam 1 MG Q6 05/18 1200 AC 05/20 PO 05/25 1159 0527 Atorvastatin Calcium 40 MG 1700 05/18 1700 AC 05/19 PO 1805 Ceftriaxone Sodium 2,000 MG DAILY 05/18 0900 AC 05/20 IV 0924 Heparin Sodium 5,000 UNIT Q8 05/18 0600 AC 05/20 (Porcine) SC 1519 Hydralazine HCl 100 MG BID 05/18 1049 AC 05/20 PO 0932 Insulin Aspart 0 TIDAC 05/19 1200 AC 05/20 SC 0924 Insulin Detemir 7 UNITS BID 05/18 1057 AC 05/20 SC 0926 Morphine Sulfate 2 MG Q4P PRN 05/18 0345 AC 05/18 IV 1144 Nystatin 1 GARY BID 05/18 0933 AC 05/20 TOP 0926 Omeprazole 20 MG BID 05/18 1049 AC 05/20 PO 0926 Ondansetron HCl 4 MG Q6P PRN 05/18 0345 AC 05/18 IV 2015 Oxycodone HCl 5 MG Q6P PRN 05/19 0900 05/19 PO 1343 Patient Medication 1 ED ONE ONE 05/20 1230 DC 05/20 Teaching ED 05/20 1231 1520 Patient Medication 1 ED ONE ONE 05/19 1715 DC 05/19 Teaching ED 05/19 1716 1806 Topiramate 50 MG BID 05/18 1050 AC 05/20 PO 0926 Triamcinolone 1 GARY BID 05/18 1056 AC 05/20 Acetonide TOP 0925 Venlafaxine HCl 100 MG BID 05/18 1051 AC 05/20 PO 0925 Last 24 Hrs of Lab/Jey Results Last 24 Hrs of Labs/Mics: Laboratory Tests 05/20/18 0605: Anion Gap 12, Estimated GFR 46 L, BUN/Creatinine Ratio 19.2 Assessment/Plan Assessment: 58-year-old female with a past medical history of Crohn's disease, kidney stones , diabetes that is here with a chief complaint of left flank pain, nausea, vomiting. She was found on CT to have asymmetric left perinephric stranding which is a new finding from her prior study, no hydronephrosis, unchanged appearance of a nonobstructing left midpole renal calculus. She was found to have evidence of UTI on urinalysis and elevated WBC count, with a low-grade temperature in the emergency department. She is being treated for pyelonephritis with ceftriaxone 2 g daily. The patient does not walk at baseline and lives alone in a house with 3 aides that come to help her with daily chores and medication administration by who are not there at all times and she is alone from the hours of 8 PM to 7 AM. The patient's hygiene is lacking and she notes that she requires more help than she is getting. Physical exam reveals pain over the left flank, worse on palpation. Normal cardiac and lung exams. The patient has scattered skin rashes in her skin folds. She has previously been to the wound center to see Dr. Soto with administration of triamcinolone cream and nystatin powder. Vitals overnight are stable. Labs done today show slightly increased sodium to 133, stable creatinine at 1.2. Urine culture has been found to grow Escherichia coli that is sensitive to ciprofloxacin. Of note nurse called resident to report that patient had had Xanax tablets in her purse that she had continued to take during her admission. She had altered mental status this morning that may be attributed to this. The patient also had new mild rhonchi in the lower lung santiago today. Plan Continue patient on 2 g of ceftriaxone for pyelonephritis with switch to ciprofloxacin on discharge Her urine culture has grown gram-negative rods, found to be Escherichia coli. Patient's creatinine is stable at 1.2, fluids have been stopped. For patient's new rhonchi we will order chest x-ray portable. Of note patient had refused this throughout the day and as of 4 PM stating that she will go through with a chest x-ray. We changed the patient's pain medications from morphine 2 mg every 4 to oxycodone 5 mg every 6 and reassess. We will defer urology consult at this point but will have patient follow-up with Dr. Smith as an outpatient for her history of kidney stones. Of note patient did have several appointments with her but was not able to get to the office as her transportation service has been unreliable. Case management is working with the patient on this front. Zofran as needed for nausea and vomiting Physical therapy and case management consult for placement as patient requires more help than she is getting at home. Continue the patient on triamcinolone cream and nystatin powder for her candidiasis and have her follow-up with the wound center. We have confirmed the patient's medications with her pharmacy and they are as follows: Triamcinolone 0.1% twice daily, Xanax 1 mg every 6 hours scheduled, effects or 100 mg twice daily, hydralazine 100 mg twice daily, Topamax 50 mg twice daily, Pepcid 20 mg twice daily, Lipitor 40 mg daily. We will continue these medications. We will hold her glipizide extended release 2.5 mg daily, her NovoLog 25 units 3 times daily, her Levemir 15 units twice daily, and her lisinopril 40 mg daily as she has ANKIT. We will give her 7 units twice daily for her Levemir and continue that on discharge. Patient is currently n.p.o. Patient is full code DVT prophylaxis with Alps and heparin. Problem List: 1. Pyelonephritis Pain Ratin Pain Location: left flank Pain Goal: Pain 4 or less Pain Plan: oxycodone Tomorrow's Labs & Rationales: none Yonny ALVES,Gabi 05/20/18 0947: Attending MD Review Statement Attending Statement Attending MD Statement: examined this patient, discuss w/resident/PA/MEDICAL REPRESENTATIVE, agreed w/resident/PA/MEDICAL REPRESENTATIVE, reviewed EMR data (avail), discussed with nursing, discussed with case mgmt, reviewed images Attending Assessment/Plan: The RN is concerned that the patient is confused today. As per the nurse the patient's mother spoke to the patient and was worried about confusion as well. She has a low-grade temp of 99.2. Otherwise her parameters appear stable, she is growing an E. coli in her urine and we can likely switch her to antibiotics by mouth after today. Her sodium is stable at 133 and her BUN and creatinine is stable at 23 and 1.2. Will follow the mentation closely, she is slightly rhonchorous on physical exam and will get a chest x-ray. Will hold discharge and reevaluate.
--- NOTE | 2018-05-20 07:40 | Patient Discharge Instructions ---
Discharge Instructions General Discharge Information You were seen/treated for: UPPER URINARY TRACT INFECTION Special Instructions: 1. please follow up with new PCP in one week 2. please follow up with Dr. Smith urologist in one week 3. please follow up with wound care in one week [phone] Diet Continue normal diet: Yes Activity Full Activity/No Limits: Yes Acute Coronary Syndrome Inclusion Criteria At DC or during hospital stay patient has or had the following: ACS DIAGNOSIS No Discharge Core Measures Meds if any: Prescribed or Continued at Discharge Meds if any: NOT Prescribed or Continued at Discharge Congestive Heart Failure Inclusion Criteria At DC or during hospital stay patient has or had the following: CHF DIAGNOSIS No Discharge Core Measures Meds if any: Prescribed or Continued at Discharge Meds if any: NOT Prescribed or Continued at Discharge Cerebrovascular accident Inclusion Criteria At DC or during hospital stay patient has or had the following: CVA/TIA Diagnosis No Discharge Core Measures Meds if any: Prescribed or Continued at Discharge Meds if any: NOT Prescribed or Continued at Discharge Venous thromboembolism Inclusion Criteria VTE Diagnosis No VTE Type NONE VTE Confirmed by (Test) NONE Discharge Core Measures - Per Current guidelines, there needs to be overlap - treatment for the first 5 days of Warfarin therapy. - If discharged on Warfarin prior to 5 days of - overlap therapy, the patient will need to be - assessed for post discharge needs including - *Post discharge parental anticoagulation - *Warfarin and/or parental anticoagulation education - *Follow up date to check INR post discharge At least 5 days overlap therapy as Inpatient No Meds if any: Prescribed or Continued at Discharge Note: Overlap Therapy is Warfarin and Anticoagulant Meds if any: NOT Prescribed or Continued at Discharge
--- NOTE | 2018-05-20 14:53 | Event Note ---
Event Note Event Note: S: At around noon, resident was paged by nursing and informed that they had found pill bottle containing Xanax tablets in patient's purse that she had brought from home. B: Earlier this morning, on interview during rounds, patient had appeared altered and was alert and oriented 1. The patient is here for pyelonephritis being treated with ceftriaxone. She has been stable but has had continuing nausea and vomiting and left flank pain. Additionally this morning it was found that she had some mild rhonchi on chest exam. Her vitals are stable as morning and she was saturating 96% on room air, afebrile. A: We ordered chest x-ray for the patient this morning. We had planned to discharge her today but held off on the discharge to reassess mental status at 1 PM. When we confronted her regarding the pills, she became angry. She refused chest x-ray. R: We will continue to monitor the patient's mental status and will be able to discharge her home on oral antibiotics once she is not exhibiting altered mental status.
[2018-05-20 15:13] VITALS: BP 142/72
[2018-05-20 21:19] VITALS: BP 138/86
--- NOTE | 2018-05-20 23:33 | RADIOLOGY REPORT ---
EXAMINATION: XR PORTABLE CHEST CLINICAL INFORMATION: Altered mental status. New rhonchi. COMPARISON: 06/20/2017 TECHNIQUE: Portable frontal view of the chest was obtained. FINDINGS: Significantly low lung volumes. Hazy opacity at the left costophrenic angle. The right lung is clear. No pneumothorax. No edema. The cardiomediastinal silhouette is of limited evaluation due to the lung hypoexpansion. IMPRESSION: Significantly low lung volumes. Hazy opacity at the left costophrenic angle may represent a small pleural effusion. There may be associated airspace opacity.
[2018-05-21 05:53] VITALS: BP 130/80
--- NOTE | 2018-05-21 07:58 | PN- Housestaff ---
Rajeev ALVES,Marisel 05/21/18 0757: Subjective Follow-up For: Pyelonephritis Inability to care for self Altered mental status Subjective: Patient was seen and examined. She continues to be confused and is alert and oriented 1. On first interview this morning she is lethargic. When the team return for interview she is sitting up in bed, less lethargic but continues to be confused, thinking that she was home yesterday. Her vital signs are stable. She has no complaints other than the left flank pain. Denies nausea or vomiting. Review of Systems Constitutional: Reports: no symptoms. EENTM: Reports: no symptoms. Cardiovascular: Reports: no symptoms. Respiratory: Reports: no symptoms. Gastrointestinal: Reports: abdominal pain. Genitourinary: Reports: no symptoms. Musculoskeletal: Reports: no symptoms. Skin: Reports: lesions. Objective Last 24 Hrs of Vital Signs/I&O Vital Signs Date Time Temp Pulse Resp B/P B/P Pulse O2 O2 Flow FiO2 Mean Ox Delivery Rate 05/21 0855 97.6 73 22 130/80 05/21 0553 97.6 73 22 130/80 98 Room Air 05/20 2119 98.1 82 18 138/86 97 05/20 1513 98.2 99 20 142/72 99 Room Air Intake & Output 05/21 1600 05/21 0800 05/21 0000 Intake Total 250 250 Output Total Balance 250 250 Intake, IV 10 10 Intake, Oral 240 240 Physical Exam General Appearance: Alert, Cooperative, No Acute Distress Skin: No Rashes, generalized candidiasis mostly in intertiginous areas Skin Temp/Moisture Exam: Warm/Dry HEENT: Atraumatic, PERRLA, EOMI, Mucous Membr. moist/pink Neck: No JVD Cardiovascular: Regular Rate, Normal S1, Normal S2, No Murmurs Lungs: no crackles or rhonchi noted, no wheezing Abdomen: Normal Bowel Sounds, Soft, No Tenderness, No Hepatospenomegaly, No Masses Neurological: Normal Speech Extremities: No Clubbing, No Cyanosis, No Edema, Normal Pulses, No Tenderness/ Swelling Current Medications: Current Medications Sig/Jack Start time Last Medication Dose Route Stop Time Status Admin Acetaminophen 650 MG Q6P PRN 05/18 0215 AC PO Alprazolam 1 MG Q6 05/18 1200 AC 05/21 PO 05/25 1159 0928 Atorvastatin Calcium 40 MG 1700 07/09 1700 AC 05/20 PO 1721 Ceftriaxone Sodium 2,000 MG DAILY 05/18 0900 AC 05/21 IV 0859 Heparin Sodium 5,000 UNIT Q8 05/18 0600 AC 05/21 (Porcine) SC 0539 Hydralazine HCl 100 MG BID 05/18 1049 AC 05/21 PO 0855 Insulin Aspart 0 TIDAC 05/19 1200 AC 05/21 SC 0856 Insulin Detemir 7 UNITS BID 05/18 1057 AC 05/21 SC 0857 Morphine Sulfate 2 MG Q4P PRN 05/18 0345 AC 05/18 IV 1144 Nystatin 1 GARY BID 05/18 0933 AC 05/21 TOP 0859 Omeprazole 20 MG BID 05/18 1049 AC 05/21 PO 0856 Ondansetron HCl 4 MG Q6P PRN 05/18 0345 AC 05/18 IV 2015 Oxycodone HCl 5 MG Q6P PRN 05/19 0900 AC 05/19 PO 1343 Patient Medication 1 ED ONE ONE 05/20 1230 DC 05/20 Teaching ED 05/20 1231 1520 Topiramate 50 MG BID 05/18 1050 AC 05/21 PO 0855 Triamcinolone 1 GARY BID 05/18 1056 AC 05/21 Acetonide TOP 0858 Venlafaxine HCl 100 MG BID 05/18 1051 AC 05/21 PO 0858 Last 24 Hrs of Lab/Jey Results Last 24 Hrs of Labs/Mics: Laboratory Tests 05/21/18 0910: Anion Gap 13, Estimated GFR 51 L, BUN/Creatinine Ratio 17.3, CBC w Diff NO MAN DIFF REQ, RBC 3.96 L, MCV 82.5, MCH 28.4, MCHC 34.4, RDW 16.4 H, MPV 9.9, Gran % 70.8, Lymphocytes % 11.4 L, Monocytes % 15.1 H, Eosinophils % 2.2, Basophils % 0.5, Absolute Granulocytes 5.2, Absolute Lymphocytes 0.8 L, Absolute Monocytes 1.1 H, Absolute Eosinophils 0.2, Absolute Basophils 0 Assessment/Plan Assessment: 58-year-old female with a past medical history of Crohn's disease, kidney stones , diabetes that is here with a chief complaint of left flank pain, nausea, vomiting. She was found on CT to have asymmetric left perinephric stranding which is a new finding from her prior study, no hydronephrosis, unchanged appearance of a nonobstructing left midpole renal calculus. She was found to have evidence of UTI on urinalysis and elevated WBC count, with a low-grade temperature in the emergency department. She is being treated for pyelonephritis with ceftriaxone 2 g daily. The patient does not walk at baseline and lives alone in a house with 3 aides that come to help her with daily chores and medication administration by who are not there at all times and she is alone from the hours of 8 PM to 7 AM. The patient's hygiene is lacking and she notes that she requires more help than she is getting. Physical exam reveals pain over the left flank, worse on palpation. Normal cardiac and lung exams. The patient has scattered skin rashes in her skin folds. She has previously been to the wound center to see Dr. Soto with administration of triamcinolone cream and nystatin powder. Vitals overnight are stable. Labs done today show slightly increased sodium to 133, stable creatinine at 1.2. Urine culture has been found to grow Escherichia coli that is sensitive to ciprofloxacin. Of note nurse called resident to report that patient had had Xanax tablets in her purse that she had continued to take during her admission. She had altered mental status this morning that may be attributed to this. The patient also had new mild rhonchi in the lower lung santiago today. Plan Continue patient on 2 g of ceftriaxone for pyelonephritis with switch to ciprofloxacin on discharge Her urine culture has grown gram-negative rods, found to be Escherichia coli. Patient was alert and oriented x3 on admission but yesterday was found to be altered and AOx1. It was found that the patient had been taking xanax from her purse on top of the xanax we were giving her. Today the patient continues to be altered so we will do a cbc, bep, and utox. If she continues to be confused later today we will do a CT head. Patient's creatinine is stable, fluids have been stopped. For patient's new rhonchi that we heard yesterday, we ordered chest x-ray which showed significantly low lung volumes, hazy opacity at the left costophrenic angle which may represent a small pleural effusion. There may be associated airspace opacities. We changed the patient's pain medications from morphine 2 mg every 4 to oxycodone 5 mg every 6. We will defer urology consult at this point but will have patient follow-up with Dr. Smith as an outpatient for her history of kidney stones. Of note patient did have several appointments with her but was not able to get to the office as her transportation service has been unreliable. Case management is working with the patient on this front. Zofran as needed for nausea and vomiting Physical therapy and case management consult for placement as patient requires more help than she is getting at home. Continue the patient on triamcinolone cream and nystatin powder for her candidiasis and have her follow-up with the wound center. We have confirmed the patient's medications with her pharmacy and they are as follows: Triamcinolone 0.1% twice daily, Xanax 1 mg every 6 hours scheduled, effects or 100 mg twice daily, hydralazine 100 mg twice daily, Topamax 50 mg twice daily, Pepcid 20 mg twice daily, Lipitor 40 mg daily. We will continue these medications. We will hold her glipizide extended release 2.5 mg daily, her NovoLog 25 units 3 times daily, her Levemir 15 units twice daily, and her lisinopril 40 mg daily as she has ANKIT. We will give her 7 units twice daily for her Levemir and continue that on discharge. Patient is currently n.p.o. Patient is full code DVT prophylaxis with Alps and heparin. Problem List: 1. Pyelonephritis 2. Altered mental state Pain Ratin Pain Location: LEFT FLANK Pain Goal: Pain 4 or less Pain Plan: oxycodone Tomorrow's Labs & Rationales: utox cbc bep Gabi Blancas MD 05/21/18 1120: Attending MD Review Statement Attending Statement Attending MD Statement: examined this patient, discuss w/resident/PA/TIRE DEBEADER, agreed w/resident/PA/TIRE DEBEADER, reviewed EMR data (avail), discussed with nursing, discussed with case mgmt, reviewed images Attending Assessment/Plan: Patient's mentation appears worse today. She is more confused. She doesn't know she is in the hospital and she thinks it's 1997. Yesterday the nurse found that she was taking her own Xanax in addition to the Xanax we prescribed her and her meds have been taken away from her. I am concerned as to the etiology of this confusion. She is morbidly obese, with underlying hypertension and diabetes and we are treating her for pyelonephritis with IV ceftriaxone. I hope to switch her to PO antbiotics and discharge her but obviously cannot given the mentation change. We'll get stat labs. The neuro exam she is completely nonfocal so if the labs are unrevealing we will get a CT head although my suspicion for any focal ischemic event is low.
[2018-05-21 09:56] LABS: ABSOLUTE BASOPHIL COUNT 0 /CUMM (0.0-0.2); ABSOLUTE EOSINOPHIL COUNT 0.2 /CUMM (0.0-0.7); ABSOLUTE GRANULOCYTE CT 5.2 /CUMM (1.4-6.5); ABSOLUTE LYMPH COUNT 0.8 /CUMM (1.2-3.4); ABSOLUTE MONOCYTE COUNT 1.1 /CUMM (0.10-0.60); BASOPHIL % 0.5 % (0.0-2.0); EOSINOPHIL % 2.2 % (0-5); GRANULOCYTE % 70.8 % (42.2-75.2); HEMATOCRIT 32.7 % (37-47); MEAN CORPUSCULAR HGB 28.4 PG (27.0-31.0); MEAN CORPUSCULAR HGB CONC 34.4 G/DL (33.0-37.0); MEAN CORPUSCULAR VOLUME 82.5 FL (81.0-99.0); MEAN PLATELET VOLUME 9.9 FL (7.4-10.4); PLATELET COUNT 236 /CUMM (130-400); RBC DISTRIBUTION WIDTH 16.4 % (11.5-14.5); RED BLOOD CELL CT 3.96 /CUMM (4.20-5.40); WHITE BLOOD CELL COUNT 7.4 /CUMM (4.8-10.8)
[2018-05-21 14:18] VITALS: BP 132/85
--- NOTE | 2018-05-21 17:07 | Discharge Summary ---
Visit Information Visit Dates Admission Date: 05/17/18 Discharge Date: 05/21/18 Hospital Course Course Attending Physician: Yonny ALVES,Gabi Gastelum Primary Care Physician: Cecelia Rod APRN Hospital Course: Patient is a 58-year-old woman with a PMH significant for morbid obesity ( bedridden), Crohn's (on chronic steroids), kidney stones, diabetes mellitus, hypothyroidism, hyperlipidemia, depression, chronic pain presents with 3 days of vomiting, nausea, dysuria, frequency and left flank pain. She arrived BIB from home. Patient was confused on admission and is a poor historian. She states that she has been having kidney stones for a couple months. She also states that she has home health aide services to help with medications and self-care. According to patient she was a candidate for lithotripsy and stone removal, but a health services company was unable to transfer her to a center to get the procedure done due to her morbid obesity. The patient does not walk at baseline and lives alone in a house with 3 aides that come to help her with daily chores and medication administration by who are not there at all times and she is alone from the hours of 8 PM to 7 AM. The patient's hygiene is lacking and she notes that she requires more help than she is getting. Vitals on admission were MAXIMUM TEMPERATURE of 99.5, heart rate 101, respiratory rate 20, BP 136/60 and O2 sats 97% on room air. Patient was lethargic/drowsy and had left-sided CVA tenderness on examination. The patient has scattered skin rashes in her skin folds. She has previously been to the wound center to see Dr. Soto with administration of triamcinolone cream and nystatin powder. WBC count of 18.4 with 2 bands, H&H 13.1/38.8, platelet count 257, sodium 1:30, potassium 5.4, chloride 95, UN/53 1/1.2 and blood glucose 285. Amylase and lipase level were negative. Normal lactic acid level but had an anion gap of 17. UA positive with positive leukocyte esterase and WBC count but also shows high epithelial cells. CT abdomen and pelvis showed asymmetric left perinephric stranding which is a new finding from her prior study, no hydronephrosis, unchanged appearance of a nonobstructing left midpole renal calculus. Hospital Course: We treated patient for sepsis of urological origin on admission as evidenced by fever, leukocytosis, tachycardia and a positive UA with 2 g of ceftriaxone for pyelonephritis. We started fluids due to mild ANKIT. Her urine culture has grown gram-negative rods, found to be Escherichia coli sensitive to cipro so we prescribed cipro at discharge for a total of 14 of treatment. Zofran for nausea and vomiting as needed. Pain control for her flank pain was morphine 2 mg every 4 which we changed to oxycodone 5 mg every 6 when patient stated that morphine was not covering her pain (although records shoed that she hadnt required many doses of morphine to begin with). We deferred urology consult but will have patient follow-up with Dr. Smith as an outpatient for her kidney stones. Of note patient did have several appointments with her but was not able to get to the office as her transportation service has been unreliable. Case management discussed this with the patient's caregivers as she will require a more capable service. The patient was finally found to have a widespread rash that appeared in the intertriginous areas of the body. She had followed up with the wound center in the past for this erickson rash. We continued the patient on triamcinolone cream and nystatin powder for her candidiasis and referred her to continue follow-up with the wound center. Patient was alert and oriented x3 on admission but on the day before planned admission, was found to be altered and AOx1. It was found that the patient had been taking xanax from her purse on top of the xanax we were giving her. On top of that, new rhonchi were auscultated so we ordered chest x-ray which showed significantly low lung volumes, hazy opacity at the left costophrenic angle which may represent a small pleural effusion. There may be associated airspace opacities. These changes were assumed to be secondary to the patient's physical state and deconditioning. The next day, the patient continued to be altered in the morning, but was AOx3 in the late afternoon. At that point, the patient's caretakers were visiting and, along with the patient, requested that she be discharged at that moment. As they had laid out a clear plan of taking her home by [facility] to their house and had a suitable bed for her, and she was AOx3, we allowed her to be discharged. Care was taken to assure CMR was updated as per conversation with pharmacist and her PCP. She was discharged to caretakers house around 6:30pm. At the time of discharge she continued to be AOX3. She was discharged on 1mg xanax q6h for anxiety which the caretakers were to dose as they stated they had been doing previously. Patient was also discharged on 9 days worth of cipro 500mg bid for the total 14 days treatment. We confirmed the patient's current medications with her pharmacy and they are as follows: Triamcinolone 0.1% twice daily, Xanax 1 mg every 6 hours scheduled, effects or 100 mg twice daily, hydralazine 100 mg twice daily, Topamax 50 mg twice daily, Pepcid 20 mg twice daily, Lipitor 40 mg daily. We continued these medications. We held her glipizide extended release 2.5 mg daily, her NovoLog 25 units 3 times daily, her Levemir 15 units twice daily, and her lisinopril 40 mg daily as she has ANKIT. We gave her 7 units twice daily for her Levemir and continued that on discharge as her sugars were at an acceptable range during her time with us. Allergies: Coded Allergies: NSAIDS (Non-Steroidal Anti-Inflamma (CROHNS/DIVERTICULOSIS 04/01/18) aspirin (CROHNS/DIVERTICULOSIS 04/01/18) furosemide (From LASIX) ("ENZYMES WENT ABIMBOLA HIGH" 04/01/18) Disposition Summary Disposition Principal Diagnosis: pylenonephritis - sepsis of urological origin Additional Diagnosis: erickson skin infection Diabetes Morbid Obesity ANKIT Discharge Disposition: home health services Discharge Instructions General Discharge Information Code Status: Full Code Patient's Diet: as tolerated Patient's Activity: as tolerated Follow-Up Instructions/Appts: 1. please follow up with new PCP in one week 2. please follow up with Dr. Smith urologist in one week 3. please follow up with wound care in one week Medications at Discharge Discharge Medications: Stop taking the following medications: Amlodipine Besylate (Amlodipine Besylate) (Unknown Strength) TABLET ORAL DAILY Qty = 90 Carvedilol (Carvedilol) 6.25 MG TABLET ORAL TWICE DAILY Qty = 60 Fluoxetine HCl (Fluoxetine HCl) 20 MG CAPSULE ORAL Every Morning Qty = 90 Glipizide (Glipizide) 5 MG TABLET ORAL TWICE DAILY Losartan Potassium (Cozaar) 50 MG TABLET ORAL DAILY Qty = 30 Continue taking these medications: Ketoconazole (Ketoconazole) 2 % CREAM..G. 1 Application On the skin As Directed Qty = 120 Instructions: apply to affected area(s) Comments: PER PT Clotrimazole (Clotrimazole) 1 % CREAM..G. 1 Application On the skin As Directed Qty = 210 Instructions: apply to affected area(s) Zinc Oxide (Desitin) 13 % CREAM..G. 1 Application On the skin THREE TIMES DAILY Hydralazine HCl (Hydralazine HCl) 100 MG TABLET 1 Tablet ORAL TWICE DAILY Comments: Last Taken:05/22/18 Time:8:13 AM Hydrocodone/Acetaminophen (Hydrocodon-Acetaminophn 10-300) 10 MG-300 MG TABLET 1 Tablet ORAL EVERY SIX HOURS Nystatin (Nyamyc) 100,000 UNIT/GRAM POWDER 1 Application On the skin TWICE DAILY Venlafaxine HCl (Venlafaxine HCl) 100 MG TABLET 1 Tablet ORAL TWICE DAILY Comments: Last Taken:05/22/18 Time:8:12 AM Ondansetron (Zofran Odt) 4 MG TAB.RAPDIS 1 Tablet SUBLINGUAL THREE TIMES DAILY as needed for nausea Qty = 10 Oxycodone HCl (Oxycodone HCl) 5 MG TABLET 1 Tablet ORAL 4 times daily as needed as needed for pain Qty = 10 Comments: Last Taken:05/19/18 Time:2 PM Atorvastatin Calcium (Lipitor) 40 MG TABLET 1 Tablet ORAL DAILY Qty = 30 Comments: Last Taken:05/22/18 Time:8:12 AM Glipizide (Glipizide ER) 2.5 MG TAB.ER.24 1 Tablet ORAL DAILY Qty = 30 Comments: NOT GIVEN IN HOSPITAL Start taking the following new medications: Alprazolam (Alprazolam) 0.5 MG TABLET 1 Milligram ORAL EVERY SIX HOURS Qty = 30 Refills = 1 Instructions: PATIENT AIDE WILL DOSE NEEDED. Comments: Last Taken:05/21/18 Time:10 AM PATIENT RECEIVED 1 MG THIS MORNING. Ciprofloxacin HCl (Cipro) 500 MG TABLET 1 Tablet ORAL TWICE DAILY Qty = 18 No Refills Comments: Last Taken:05/22/18 Time:8:12 AM The following medications have been changed: Old: Insulin Aspart, Recombinant (Novolog Flexpen) 100 UNIT/ML INSULN.PEN Units SC 3 TIMES DAILY BEFORE MEALS Qty = 45 New: Insulin Aspart, Recombinant (Novolog Flexpen) 100 UNIT/ML INSULN.PEN 25 Units SC 3 TIMES DAILY BEFORE MEALS Qty = 1000 Comments: Last Taken: Time:12:12 PM Old: Oxybutynin Chloride (Oxybutynin Chloride) (Unknown Strength) TABLET Unknown Dose ORAL TWICE DAILY Qty = 90 New: Oxybutynin Chloride (Oxybutynin Chloride) 5 MG TABLET 1 Tablet ORAL TWICE DAILY Qty = 90 Comments: Last Taken:05/22/18 Time:8:12 AM Old: Lisinopril (Lisinopril) (Unknown Strength) TABLET 40 Milligram ORAL DAILY Qty = 30 New: Lisinopril (Lisinopril) 40 MG TABLET 1 Tablet ORAL DAILY Qty = 30 Comments: Last Taken:05/22/18 Time:8:10 AM Old: Topiramate (Topamax) (Unknown Strength) TABLET Unknown Dose ORAL TWICE DAILY New: Topiramate (Topamax) 50 MG TABLET 1 Tablet ORAL TWICE DAILY Qty = 30 Comments: Last Taken:05/22/18 Time:8:12 AM Old: Omeprazole (Omeprazole) (Unknown Strength) CAPSULE.DR 20 Milligram ORAL TWICE DAILY Qty = 60 New: Omeprazole (Omeprazole) 20 MG CAPSULE.DR 1 Tablet ORAL TWICE DAILY Qty = 60 Comments: Last Taken:05/22/18 Time:8:12 AM Copies To: Tabby Smith MD; Daniel Sanchez MD, MD, Grace; Bilori MD, Bilori
[2018-05-21] MEDS ORDERED: ALPRAZOLAM0.5 M4 PO ×2 (17:32→17:57)
[2018-05-21] MEDS ORDERED: CIPROFLOXACIN500 M2 PO (17:32)
[2018-05-21] MEDS ORDERED: LIPITOR40 M1 PO (17:44)
[2018-05-21] MEDS ORDERED: OMEPRAZOLE20 M2 PO (17:48)
[2018-05-21] MEDS ORDERED: TOPAMAX50 M1 PO (17:48)
[2018-05-21] MEDS ORDERED: LISINOPRIL40 M1 PO (17:48)
[2018-05-21] MEDS ORDERED: OXYBUTYNIN CHLOR5 M2 PO (17:48)
[2018-05-21] MEDS ORDERED: GLIPIZIDE ER2.5 M1 PO (17:53)
[2018-05-21] MEDS ORDERED: NOVOLOG FL100 UNIT/1 SC (17:54)
[2018-05-21] MEDS ORDERED: CIPRO500 M1 PO (17:57)
--- NOTE | 2018-05-21 22:54 | Event Note ---
Event Note Event Note: s: At around 4pm, resident was called to patient room. Patient's caretakers, a couple with a baby, were there to speak with doctor and to pick patient up to take her to their house. According to them, the patient was only altered earlier because she had ingested extra xanax doses from her purse on top of the xanax we were giving her. They, and the patient herself, wanted to be discharged immediately now that she was alert and oriented x3. B. Patient was admitted for pyelonephritis. She was placed on ceftriaxone IV. On the 3rd day of her admission, patient appear AOx1. She did not know the year or where she was. Her discharge was deferred to today. We attempted CT head as patient was altered but patientn refused. Yesterday, patient was found to have ingested extra xanax from her purse by her nurse. At that time the nurse was instructed to place her purse far away from her as patient is bedbound. Overnight patient had non complaints. However, in the morning of 05/21 patient continued to be altered so was kept for another day. A I assessed the patient with the caretakers at 4pm. She was AOx3. The caretakers were upset that we had not checked her purse and state that every other hosital checks patients' purses on admission. R: Resident communicated that it was not in our policy to check every patient's purse. Attending was called and spoke with caretakers. As they had laid out a clear plan of taking her home by [facility] and she was AOx3, we allowed her to be discharged. Care was taken to assure CMR was updated as per conversation with pharmacist and her PCP. She was discharged to caretakers house around 6:30pm. At the time of discharge she continued to be aoX3. She was discharged on 1mg xanax q6h for anxiety which the caretakers were to dose as they had been doing previously. Patient was also discharged on 9 days worth of cipro 500mg bid.
[2018-05-22] MEDS ORDERED: ALPRAZOLAM0.5 M4 PO (11:07)
[2018-05-22] MEDS ORDERED: LEVEMIR100 UNIT/1 SC (11:07)
== END 2018-05-21 19:46 | disposition home health service (06) | DRG 872 ==
LOC: DELPENDDIS → ERH 18:59 → ERHI 23:51 → 2NA 23:51 → ENRESERV 05-18 00:44 → 2NA 05-18 02:24 → ENPENDDIS 05-19 10:11 → 2NA 05-20 18:12
PROVIDERS: Internal Medicine; Pediatrics; Student in an Organized Health Care Education/Training Program
DX: A41.9 Sepsis, unspecified organism (principal); N10 Acute pyelonephritis; Z68.43 Body mass index [BMI] 50.0-59.9, adult; K50.90 Crohn's disease, unspecified, without complications; E87.2 Acidosis; N17.9 Acute kidney failure, unspecified; I10 Essential (primary) hypertension; E66.01 Morbid (severe) obesity due to excess calories; E03.9 Hypothyroidism, unspecified; F32.9 Major depressive disorder, single episode, unspecified; E86.0 Dehydration; N20.0 Calculus of kidney; Z87.442 Personal history of urinary calculi; Z79.4 Long term (current) use of insulin; Z74.01 Bed confinement status; Z79.52 Long term (current) use of systemic steroids; E78.5 Hyperlipidemia, unspecified; Z88.6 Allergy status to analgesic agent; Z88.8 Allergy status to other drugs, medicaments and biological substances; B37.2 Candidiasis of skin and nail; B96.20 Unspecified Escherichia coli [E. coli] as the cause of diseases classified elsewhere; E11.65 Type 2 diabetes mellitus with hyperglycemia
CPT/HCPCS: 2NAP; 2NASP; ERO; 36415; 36592; 71045; 74176; 80307; 81001; 82436; 87040; 87086; 93005; 93010; 96374; 96375; J0131; J0696; J1644; J1815; J1885; J2405; J3490

== ENCOUNTER 2018-05-21 20:44 | Observation (INO) | payer OTHER, MEDICARE ==
[~2018-05-21] VITALS: Ht 167.6 cm; Wt 158.8 kg
[~2018-05-21 20:44] MED LIST changes: +ALPRAZOLAM0.5 M4 PO; +CIPROFLOXACIN500 M2 PO; +GLIPIZIDE ER2.5 M1 PO; +LIPITOR40 M1 PO
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
[2018-05-21 23:00] LABS: ABSOLUTE BASOPHIL COUNT 0 /CUMM (0.0-0.2); ABSOLUTE EOSINOPHIL COUNT 0.3 /CUMM (0.0-0.7); ABSOLUTE GRANULOCYTE CT 5.8 /CUMM (1.4-6.5); ABSOLUTE LYMPH COUNT 1.7 /CUMM (1.2-3.4); ABSOLUTE MONOCYTE COUNT 1.3 /CUMM (0.10-0.60); BASOPHIL % 0.4 % (0.0-2.0); EOSINOPHIL % 3.8 % (0-5); GRANULOCYTE % 63.4 % (42.2-75.2); HEMATOCRIT 33.9 % (37-47); MEAN CORPUSCULAR HGB CONC 33.9 G/DL (33.0-37.0); MEAN CORPUSCULAR VOLUME 82.4 FL (81.0-99.0); MEAN PLATELET VOLUME 8.3 FL (7.4-10.4); PLATELET COUNT 265 /CUMM (130-400); RED BLOOD CELL CT 4.11 /CUMM (4.20-5.40); WHITE BLOOD CELL COUNT 9.1 /CUMM (4.8-10.8)
[2018-05-22 00:29] VITALS: BP 146/90
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
--- NOTE | 2018-05-22 09:52 | PN- Att Addend ---
Attending Addendum Attending Brief Note This is a 58-year-old female with morbid obesity, bedbound state for over 10 years, hypertension diabetes and benzo use. She was admitted with ANKIT dehydration and pyelonephritis. We switched her to by mouth antibiotics yesterday. She adamantly refuses rehabilitation and through the state has aides that take care of her. The aide and his came yesterday and spoke to both the international trade specialist and I. Initially in the day we were concerned about the patient's mental status but the aide attributed that to the Xanax and later in the evening she was completely alert, oriented and was stable for discharge. The aide was going to take her to his house to live there which is an apartment until they were moving to a house in early June. The patient left but when she reached she couldn't be moved up the stairs to the apartment and was brought back to the emergency room. In the emergency room she was significantly confused and questionably delirious and was readmitted. Today when we saw her with the team she's completely awake, alert and appropriate, again adamantly refusing rehabilitation and wants to go to live with friends or her aide until this house in June is ready for her. I am concerned about her living situation. The patient's mother keeps calling and talking to the nurses and the international trade specialist about the aide stealing from her and going with them is not a safe discharge plan. The patient says that she's not had any contact with her mother for a very long time and she makes her own decisions and the aides take good care of her. At this point I think case management and social work need to approach the aides and the mother and we may need to have a family meeting with all concerned to come up with a safe discharge plan
--- NOTE | 2018-05-22 10:27 | CT SCAN REPORT ---
EXAMINATION: CT HEAD WITHOUT CONTRAST CLINICAL INFORMATION: Altered mental status. COMPARISON: None TECHNIQUE: Contiguous axial imaging was performed from the skull base to vertex without intravenous administration of contrast. DLP: 1106 mGy-cm FINDINGS: There is no evidence of acute intracranial hemorrhage or territorial infarction. No abnormal mass effect or midline shift is seen. Morris to white matter differentiation is well preserved. No extra-axial fluid collections are identified. There appears to be mild encephalomalacia in the inferior left occipital lobe with slight associated sulcal prominence and minor ex vacuo dilatation of the occipital horn of the left lateral ventricle. There are punctate prominent perivascular spaces versus chronic lacunar infarcts in the posterior limbs of the internal capsules and lentiform nuclei, and a chronic lacunar infarct in the left hancock radiata. Minor hypoattenuation in the bihemispheric white matter. There is mild volume loss in the superior vermis. The ventricles, sulci, and extra-axial CSF spaces are otherwise unremarkable. No acute osseous abnormalities. There is patchy opacification of the ethmoid air cells bilaterally. There is a retention cyst in the left sphenoid air cell with internal hyperattenuation suggesting inspissation of secretions. There is mild mucosal thickening at the maxillary bases. The nasal cavity is clear with a sigmoid nasal septal deviation. The nasopharynx is symmetric. The mastoid air cells and middle ear cavities are clear. The temporomandibular joints articulate normally. IMPRESSION: No acute intracranial pathology. Mild volume loss in the superior vermis. There is mild hypoattenuation in the bihemispheric white matter with a lacunar infarct in the left centrum semiovale, and punctate lacunar infarcts versus prominent perivascular spaces in the basal ganglia bilaterally. There is mild encephalomalacia in the inferior left occipital lobe. Scattered inflammatory disease within the paranasal sinuses.
[2018-05-22] MEDS ORDERED: ALPRAZOLAM0.5 M4 PO (11:07)
[2018-05-22] MEDS ORDERED: LEVEMIR100 UNIT/1 SC (11:07)
--- NOTE | 2018-05-22 11:18 | Patient Discharge Instructions ---
Discharge Instructions General Discharge Information You were seen/treated for: UPPER URINARY TRACT INFECTION Special Instructions: 1. Please follow up with new primary care doctor in one week 2. Please follow up with urologist Dr. Smith in one week 3. Please follow up with wound center in one week. Diet Continue normal diet: Yes Activity Full Activity/No Limits: Yes ( TOLERATED) Acute Coronary Syndrome Inclusion Criteria At DC or during hospital stay patient has or had the following: ACS DIAGNOSIS No Discharge Core Measures Meds if any: Prescribed or Continued at Discharge Meds if any: NOT Prescribed or Continued at Discharge Congestive Heart Failure Inclusion Criteria At DC or during hospital stay patient has or had the following: CHF DIAGNOSIS No Discharge Core Measures Meds if any: Prescribed or Continued at Discharge Meds if any: NOT Prescribed or Continued at Discharge Cerebrovascular accident Inclusion Criteria At DC or during hospital stay patient has or had the following: CVA/TIA Diagnosis No Discharge Core Measures Meds if any: Prescribed or Continued at Discharge Meds if any: NOT Prescribed or Continued at Discharge Venous thromboembolism Inclusion Criteria VTE Diagnosis No VTE Type NONE VTE Confirmed by (Test) NONE Discharge Core Measures - Per Current guidelines, there needs to be overlap - treatment for the first 5 days of Warfarin therapy. - If discharged on Warfarin prior to 5 days of - overlap therapy, the patient will need to be - assessed for post discharge needs including - *Post discharge parental anticoagulation - *Warfarin and/or parental anticoagulation education - *Follow up date to check INR post discharge At least 5 days overlap therapy as Inpatient No Meds if any: Prescribed or Continued at Discharge Note: Overlap Therapy is Warfarin and Anticoagulant Meds if any: NOT Prescribed or Continued at Discharge
--- NOTE | 2018-05-22 11:34 | Event Note ---
Event Note Event Note: We had a meeting with the patient, her aide Chase with his , Latasha the gearcase assembler, the resident Marisel and the patient's mother was on speaker phone listening. We clarified that the patient is well cared for by the aides and the plan is for her to go to the aide's home as per discharge yesterday. Latasha the CM is reaching out to the head of case management who will contact the head of [facility] to ensure that she will be transported up the stairs into the apartment. The patient's mother the patient and the patient's aides agree with this plan. She will stay with her aide in his apartment until June 12 when they have a house ready. We also clarified that all of her discharge medications the Cipro etc. have already called in to [facility] yesterday and they're ready for the patient's aide to pick up attendant. Her CT head shows chronic lacunar infarcts and chronic encephalomalacia with no acute changes. Patient was awake, alert , oriented and participated in the entire meeting.
[2018-05-22 15:11] VITALS: BP 120/60
== END 2018-05-22 19:10 | disposition home health service (06) ==
LOC: ERH 20:44 → 2NB 22:00 → ERHI 22:00 → ENRESERV 22:53 → 2NB 23:58 → ENPENDDIS 05-22 14:31 → 2NB 05-22 19:10
PROVIDERS: Physician Assistant
DX: R41.82 Altered mental status, unspecified (principal); N17.9 Acute kidney failure, unspecified; E86.0 Dehydration; E66.01 Morbid (severe) obesity due to excess calories; E11.9 Type 2 diabetes mellitus without complications; Z79.4 Long term (current) use of insulin; Z79.84 Long term (current) use of oral hypoglycemic drugs; I10 Essential (primary) hypertension; E78.5 Hyperlipidemia, unspecified; K50.90 Crohn's disease, unspecified, without complications; F13.10 Sedative, hypnotic or anxiolytic abuse, uncomplicated; M54.9 Dorsalgia, unspecified; F41.9 Anxiety disorder, unspecified; F32.9 Major depressive disorder, single episode, unspecified; Z87.442 Personal history of urinary calculi
CPT/HCPCS: ERO; 80307; 96372; G0378; J1650; J3101; J3490